=== PATIENT | female | born 1975 | race American Indian/Alaskan Native ===

== ENCOUNTER 2018-07-20 19:24 | Emergency (ER) | payer OTHER ==
[2018-07-20 21:09] LABS: Hematocrit 33.3 % (30.3-42.9); Hemoglobin 10.9 gm/dl (10.1-14.3); Mean Corpuscular HGB Conc 33 % (30-34); Mean Corpuscular Hemoglobin 27 pg (28-32); Mean Corpuscular Volume 84 fl (79-97); Platelet Count 268 K/mm3 (140-440); Red Blood Count 3.97 M/mm3 (3.65-5.03)
--- NOTE | 2018-07-20 23:39 | Emergency Department Report ---
<ISABELLE VERAS III - Last Filed: 07/21/18 07:47> ED Female HPI - General Chief complaint: Vaginal Bleeding Stated complaint: HEAVY BLEEDING/CRAMPS Time Seen by Provider: 07/20/18 23:39 - Related Data Previous Rx's Medication Instructions Recorded Last Taken Type Ferrous Sulfate [Feosol 325 MG tab] 325 mg PO QDAY 30 Days #30 tablet 07/21/18 Unknown Rx HYDROcodone/APAP 5-325 [[place] 1 each PO Q6H PRN #10 tablet 07/21/18 Unknown Rx 5/325] medroxyPROGESTERone ACETATE 5 mg PO QDAY #4 tablet 07/21/18 Unknown Rx [Provera] Allergies Allergy/AdvReac Type Severity Reaction Status Date / Time Sulfa (Sulfonamide AdvReac Vomiting Verified 07/20/18 19:53 Antibiotics) ED Review of Systems ROS: Stated complaint: HEAVY BLEEDING/CRAMPS Other details as noted in HPI ED Past Medical Hx - Medications Home Medications: Home Medications Medication Instructions Recorded Confirmed Last Taken Type Ferrous Sulfate [Feosol 325 MG tab] 325 mg PO QDAY 30 Days #30 tablet 07/21/18 Unknown Rx HYDROcodone/APAP 5-325 [[place] 1 each PO Q6H PRN #10 tablet 07/21/18 Unknown Rx 5/325] medroxyPROGESTERone ACETATE 5 mg PO QDAY #4 tablet 07/21/18 Unknown Rx [Provera] ED Course Vital Signs 07/20/18 07/20/18 07/21/18 19:37 19:47 00:59 Temperature 99.0 F 99.0 F Pulse Rate 92 H 94 H Respiratory 14 16 Rate Blood Pressure 162/107 162/107 164/108 Blood Pressure [Right] O2 Sat by Pulse 100 100 99 Oximetry 07/21/18 07/21/18 07/21/18 01:03 03:00 04:00 Temperature 98.2 F Pulse Rate 84 Respiratory 18 Rate Blood Pressure 159/85 140/84 Blood Pressure 164/108 [Right] O2 Sat by Pulse 100 100 100 Oximetry 07/21/18 07/21/18 07/21/18 05:00 06:46 07:00 Temperature Pulse Rate Respiratory Rate Blood Pressure 143/91 142/89 137/92 Blood Pressure [Right] O2 Sat by Pulse 98 100 98 Oximetry 07/21/18 09:00 Temperature Pulse Rate 90 Respiratory 16 Rate Blood Pressure Blood Pressure 155/98 [Right] O2 Sat by Pulse 98 Oximetry - Reevaluation(s) Reevaluation #2: Discussed all results with patient. Patient given instructions to follow-up with [facility] as soon as possible for further evaluation and treatment. Discussed case with Dr. Smith, HYDRA[facility] TESTER. Dr. Smith recommends pain medications, provera, ferrous sulfate and follow up apt within 3-5 days. Patient given discharge instructions and return to ER precautions and instructions. Patient states that her pain has improved. Patient denies any other physical complaints at this time. Patient is stable for discharge. 07/21/18 07:51 ED Medical Decision Making - Lab Data Result diagrams: 07/21/18 01:23 07/21/18 01:23 Critical care attestation.: If time is entered above; I have spent that time in minutes in the direct care of this critically ill patient, excluding procedure time. ED Disposition Clinical Impression: Vaginal bleeding, DUB (dysfunctional uterine bleeding), Uterine mass Uterine fibroid Qualifiers: Uterine leiomyoma location: unspecified location Qualified Code(s): D25.9 - Leiomyoma of uterus, unspecified Disposition: DC-01 TO HOME OR SELFCARE Is pt being admited?: No Does the pt Need Aspirin: No Condition: Stable Instructions: Iron Rich Diet (ED), Iron Deficiency Anemia (ED), Menorrhagia (ED ), Anemia (ED) Additional Instructions: . Patient to follow up with primary care in 3-5 days. Patient to follow-up with [facility] in 3-5 days, Dr. Alexis.. Patient to return to ER if condition worsens. Patient to rest. Patient increase water. Patient to take meds as instructed. Patient to take Tylenol and ibuprofen when necessary for pain Prescriptions: Ferrous Sulfate [Feosol 325 MG tab] 325 mg PO QDAY 30 Days #30 tablet HYDROcodone/APAP 5-325 [[place] 5/325] 1 each PO Q6H PRN #10 tablet PRN Reason: Pain , Severe (7-10) medroxyPROGESTERone ACETATE [Provera] 5 mg PO QDAY #4 tablet Referrals: PRIMARY CARE, [Primary Care Provider] - 3-5 Days DESTIN SMITH [Staff Physician] - 3-5 Days Forms: Work/School Release Form(ED) Time of Disposition: 08:07 <LANEY OROPEZA - Last Filed: 07/21/18 20:05> ED Female HPI - General Source: patient Mode of arrival: Ambulatory Limitations: No Limitations - History of Present Illness MD Complaint: vaginal bleeding, pelvic pain -: Sudden Location: perineum Radiation: non-radiating Severity: moderate Severity scale (0 -10): 5 Quality: sharp Consistency: constant Improves with: none Worsens with: none Are you Now?: No Associated Symptoms: vaginal bleeding - Related Data Sexually active: Yes ED Review of Systems Comment: All other systems reviewed and negative Constitutional: denies: chills, fever Eyes: denies: eye pain, eye discharge ENT: denies: ear pain, throat pain Respiratory: denies: cough, orthopnea, shortness of breath Cardiovascular: denies: chest pain, palpitations, dyspnea on exertion Endocrine: no symptoms reported Gastrointestinal: abdominal pain. denies: nausea, vomiting Genitourinary: denies: urgency, dysuria, frequency Musculoskeletal: denies: back pain, joint swelling Skin: denies: rash, lesions Neurological: denies: headache, weakness, numbness Psychiatric: denies: anxiety, depression Hematological/Lymphatic: denies: easy bleeding, easy bruising ED Past Medical Hx - Past Medical History Previous Medical History?: No - Surgical History Past Surgical History?: No - Social History Smoking Status: Current Every Day Smoker Substance Use Type: None ED Physical Exam - General Limitations: No Limitations General appearance: alert, in no apparent distress - Head Head exam: Present: atraumatic, normocephalic, normal inspection - Eye Eye exam: Present: normal appearance, PERRL, EOMI Pupils: Present: normal accommodation - ENT ENT exam: Present: normal exam, normal orophraynx, mucous membranes moist - Neck Neck exam: Present: normal inspection, full ROM. Absent: tenderness - Respiratory Respiratory exam: Present: normal lung sounds bilaterally. Absent: respiratory distress, wheezes, rales, rhonchi, stridor - Cardiovascular Cardiovascular Exam: Present: regular rate, normal rhythm, normal heart sounds - GI/Abdominal GI/Abdominal exam: Present: soft, normal bowel sounds. Absent: distended, tenderness, guarding, rebound, rigid - Rectal Rectal exam: Present: deferred - External exam: Present: normal external exam Speculum exam: Present: vaginal bleeding. Absent: vaginal discharge, tissue, laceration Bi-manual exam: Present: normal bi-manual exam, other (Chartrinione was Ms. Catina RN.). Absent: cervical motion tendernes - Extremities Exam Extremities exam: Present: normal inspection, full ROM, normal capillary refill. Absent: tenderness - Back Exam Back exam: Present: normal inspection, full ROM. Absent: tenderness - Neurological Exam Neurological exam: Present: alert, oriented X3, CN II-XII intact - Psychiatric Psychiatric exam: Present: normal affect, normal mood - Skin Skin exam: Present: warm, dry, intact, normal color. Absent: rash ED Course - Reevaluation(s) Reevaluation #1: 07/21/18 02:46 Patient was signed out to Dr. Rodriguez pending CT scan of the abdomen and pelvis with IV and PO contrast. 07/21/18 02:52 ED Medical Decision Making - Lab Data Result diagrams: 07/21/18 01:23 07/21/18 01:23 - Radiology Data Radiology results: report reviewed, image reviewed - Medical Decision Making Dysfunctional Uterine Bleeding. ED Disposition Is pt being admited?: No Does the pt Need Aspirin: No
[2018-07-20] MEDS ORDERED: NACL 0.9% 1000 ML 1,000 ML IV ONE (23:55)
[2018-07-20] MEDS ORDERED: NORCO 5/325 PO ONE (23:55)
[2018-07-21 01:09] LABS: INR 0.97 (0.87-1.13)
[2018-07-21 01:54] LABS: Bilirubin,Urine NEG (Negative); Blood,Urine LG (Negative); Color,Urine Yellow (Yellow); Mucus,Urine 2+ /HPF
[2018-07-21 01:55] LABS: RBC,Urine > 182.0 /HPF (0.0-6.0)
[2018-07-21 02:00] LABS: Basophils % (Auto) 0.9 % (0.0-1.8); Eosinophils # (Auto) 0.3 K/mm3 (0.0-0.4); Eosinophils % (Auto) 5.3 % (0.0-4.3); Hemoglobin 10.6 gm/dl (10.1-14.3); Lymphocytes # (Auto) 2.4 K/mm3 (1.2-5.4); Lymphocytes % (Auto) 40.5 % (13.4-35.0); Mean Corpuscular HGB Conc 33 % (30-34); Mean Corpuscular Hemoglobin 28 pg (28-32); Mean Corpuscular Volume 84 fl (79-97); Monocytes # (Auto) 0.6 K/mm3 (0.0-0.8); Monocytes % (Auto) 10.7 % (0.0-7.3); Platelet Count 254 K/mm3 (140-440); Red Blood Count 3.82 M/mm3 (3.65-5.03); Red Cell Distribution Width 15.9 % (13.2-15.2)
--- NOTE | 2018-07-21 02:49 | Ultrasound Report ---
FINAL REPORT EXAM: US TRANSVAGINAL HISTORY: Pelvic pain TECHNIQUE: Transvaginal imaging was obtained of the pelvis. FINDINGS: There is a large complex solid mass in the expected position of the uterus measuring 9 cm x 7.9 cm x 8.7 cm. As to whether this is related to the uterus or adnexal is uncertain. A normal-appearing uterus and ovaries are not identified. Free fluid is not seen. IMPRESSION: Large complex solid mass centrally in the expected position of the uterus. A normal-appearing uterus and adnexa are not identified. CT scanning of the abdomen and pelvis without IV and oral contrast recommended for further evaluation.
--- NOTE | 2018-07-21 02:50 | Ultrasound Report ---
FINAL REPORT EXAM: US PELVIC COMPLETE HISTORY: Vaginal bleeding TECHNIQUE: Transabdominal imaging was obtained of the pelvis. FINDINGS: There is a complex solid mass in the expected position of the uterus measuring 9 cm x 7.9 cm x 8.7 cm. A normal-appearing uterus and adnexa are not identified. Free fluid is not seen. IMPRESSION: Complex solid mass in the expected position of the uterus measuring 9 cm x 7.9 cm x 8.7 cm. A normal-appearing uterus and adnexa are not identified. Computed tomography of the abdomen and pelvis with IV and oral contrast recommended for further evaluation.
[2018-07-21 02:53] LABS: Alanine Aminotransferase 13 units/L (7-56); Albumin 3.9 g/dL (3.9-5); BUN/Creatinine Ratio 18; Blood Urea Nitrogen 11 mg/dL (7-17); Calcium 9.1 mg/dL (8.4-10.2); Hemolysis Index 3
[2018-07-21] MEDS ORDERED: PROVERA PO ONE (03:00)
[2018-07-21] MEDS ORDERED: NORCO 5/325 PO ONE (05:34)
--- NOTE | 2018-07-21 06:39 | Cat Scan Report ---
FINAL REPORT EXAM: CT ABDOMEN PELVIS W CON HISTORY: abdominal pain, pelvic mass TECHNIQUE: Routine axial imaging was obtained of the abdomen and pelvis following the intravenous injection of 100 cc of Omnipaque 350. Delayed imaging was obtained through the kidneys ureters and bladder. Sagittal and coronal reconstructions were reviewed. FINDINGS: The lung bases are clear. Pleural fluid is not seen. The liver, gallbladder, biliary tree, pancreas, spleen, and adrenal glands appear normal. The kidneys reveal mild bilateral hydronephrosis changes secondary to extrinsic compression by a large pelvic mass. The left kidney reveals a 2.3 cm benign cortical cyst. Centrally in the pelvis an uterine in origin is a large mass with a lobular contours along the right lateral wall measuring 21.5 cm x 16.5 cm by 25.1 cm. There is peripheral displacement of bowel loops secondary to this uterine mass. Free fluid is not seen. There is no evidence of adenopathy. There superior extrinsic compression of the bladder. The vasculatures otherwise enhance normally. The appendix is not enlarged. The bowel loops are not distended. The skeletal structures otherwise do not show any acute changes. IMPRESSION: Large lobulated uterine mass measuring 21.5 cm x 16.5 cm x 25 x 1 cm. Diagnostic consideration include a diffusely enlarged uterus related to multiple fibroids and/or adenomyosis. A leiomyosarcoma cannot entirely be excluded. Mild bilateral hydronephrosis secondary to extrinsic compression of the uterus by the uterine mass. 2.3 cm benign cortical cyst in the left kidney.
[2018-07-21 09:10] VITALS: BP 155/98
== END 2018-07-21 09:10 | disposition home or self-care (01) ==
LOC: ED 19:24
DX: N93.8 Other specified abnormal uterine and vaginal bleeding (principal); D25.9 Leiomyoma of uterus, unspecified; F17.200 Nicotine dependence, unspecified, uncomplicated; Z88.2 Allergy status to sulfonamides
CPT/HCPCS: 36415; 51701; 74177; 76830; 76856; 80053; 81001; 84703; 85025; 85027; 85610; 85730; 87210; 87591; 99284; J7030; Q9967; 96360

== ENCOUNTER 2021-02-18 08:35 | Emergency (ER) | payer SELFPAY ==
[2021-02-18] MEDS ORDERED: ASPIRIN 325 MG TAB PO ONE (08:46)
--- NOTE | 2021-02-18 09:10 | XRay Report ---
CHEST 2 VIEWS INDICATION / CLINICAL INFORMATION: chest pain. COMPARISON: None available. FINDINGS: SUPPORT DEVICES: None. HEART / MEDIASTINUM: No significant abnormality. LUNGS / PLEURA: No significant pulmonary or pleural abnormality. No pneumothorax. ADDITIONAL FINDINGS: No significant additional findings. IMPRESSION: 1. No acute findings. Signer Name: Sarthak Maza MD Signed: 02/18/2021 9:05 AM Workstation Name: [id number]
[2021-02-18 10:11] LABS: Basophils # (Auto) 0.1 K/mm3 (0.0-0.1); Eosinophils # (Auto) 0.3 K/mm3 (0.0-0.4); Eosinophils % (Auto) 4.7 % (0.0-4.3); Hematocrit 36.2 % (30.3-42.9); Hemoglobin 12.4 gm/dl (10.1-14.3); Lymphocytes # (Auto) 1.6 K/mm3 (1.2-5.4); Lymphocytes % (Auto) 28.1 % (13.4-35.0); Mean Corpuscular HGB Conc 34 % (30-34); Mean Corpuscular Volume 80 fl (79-97); Monocytes # (Auto) 0.5 K/mm3 (0.0-0.8); Monocytes % (Auto) 8.7 % (0.0-7.3); Platelet Count 319 K/mm3 (140-440); Red Blood Count 4.51 M/mm3 (3.65-5.03)
[2021-02-18 10:33] LABS: Alanine Aminotransferase 17 units/L (7-56); Albumin 4.2 g/dL (3.9-5); Blood Urea Nitrogen 13 mg/dL (7-17); Calcium 9.6 mg/dL (8.4-10.2); Hemolysis Index 2
[2021-02-18 10:34] LABS: BUN/Creatinine Ratio 19
[2021-02-18] MEDS ORDERED: SODIUM CHLORIDE 0.9% 1000 ML 1,000 ML IV ONE (10:50)
--- NOTE | 2021-02-18 12:38 | Emergency Department Report ---
ED General Adult HPI - General Chief complaint: Arrhythmia/Palpitations Stated complaint: CP PUI?: No Time Seen by Provider: 02/18/21 11:48 Source: patient Mode of arrival: Ambulatory Limitations: No Limitations - History of Present Illness Initial comments: Patient is a pleasant 45-year-old -[place] female that comes to the ER today after having what she describes as her heart beating out of her chest. On further probing she states that she has had this off and on for several weeks. She endorses polyuria polydipsia and polyphagia. Patient also endorses recent weight loss. Patient denies chest pain or shortness of breath. She denies fever. She denies abdominal pain. Denies nausea vomiting diarrhea. Denies dysuria or vaginal discharge. Last menstrual period 3 weeks ago. -: Gradual, days(s) Associated Symptoms: denies other symptoms Treatments Prior to Arrival: none - Related Data Previous Rx's Medication Instructions Recorded Last Taken Type Blood-Glucose Meter [Accu-Chek 1 each MC ONCE #1 each 02/18/21 Unknown Rx Guide Monitor System] metFORMIN [Glucophage] 500 mg PO BID #28 tablet 02/18/21 Unknown Rx Allergies Allergy/AdvReac Type Severity Reaction Status Date / Time Sulfa (Sulfonamide AdvReac Vomiting Verified 07/20/18 19:53 Antibiotics) ED Review of Systems ROS: Stated complaint: CP Other details as noted in HPI Comment: All other systems reviewed and negative ED Past Medical Hx - Past Medical History Previous Medical History?: Yes Hx Hypertension: Yes (NEW DX 01/11) - Surgical History Past Surgical History?: Yes Additional Surgical History: UTERINE FIBROID SURGERY IN 2019 - Family History Family history: other (DAD DM/CVA/HTN; MOM HTN) - Social History Smoking Status: Current Every Day Smoker Substance Use Type: None - Medications Home Medications: Home Medications Medication Instructions Recorded Confirmed Last Taken Type Blood-Glucose Meter [Accu-Chek 1 each MC ONCE #1 each 02/18/21 Unknown Rx Guide Monitor System] metFORMIN [Glucophage] 500 mg PO BID #28 tablet 02/18/21 Unknown Rx ED Physical Exam - General Limitations: No Limitations General appearance: alert, in no apparent distress - Head Head exam: Present: atraumatic, normocephalic - Eye Eye exam: Present: normal appearance - ENT ENT exam: Present: mucous membranes moist - Neck Neck exam: Present: normal inspection - Respiratory Respiratory exam: Present: normal lung sounds bilaterally. Absent: respiratory distress - Cardiovascular Cardiovascular Exam: Present: regular rate, normal rhythm. Absent: systolic murmur, diastolic murmur, rubs, gallop - GI/Abdominal GI/Abdominal exam: Present: soft, normal bowel sounds - Extremities Exam Extremities exam: Present: normal inspection - Back Exam Back exam: Present: normal inspection - Neurological Exam Neurological exam: Present: alert, oriented X3 - Psychiatric Psychiatric exam: Present: normal affect, normal mood - Skin Skin exam: Present: warm, dry, intact, normal color. Absent: rash ED Course Vital Signs 02/18/21 08:44 Temperature 98 F Pulse Rate 103 H Respiratory 18 Rate Blood Pressure 169/107 [Right] O2 Sat by Pulse 100 Oximetry ED Medical Decision Making - Lab Data Result diagrams: 02/18/21 09:38 02/18/21 09:38 - EKG Data Rate: normal - EKG Data When compared to previous EKG there are: no significant change Interpretation: no acute changes - Radiology Data Radiology results: report reviewed, image reviewed [facility] - Medical Decision Making Lab Results 02/18/21 02/18/21 02/18/21 Range/Units 09:38 09:38 09:38 WBC 5.5 (4.5-11.0) K/mm3 RBC 4.51 (3.65-5.03) M/mm3 Hgb 12.4 (10.1-14.3) gm/dl Hct 36.2 (30.3-42.9) % MCV 80 (79-97) fl MCH 27 L (28-32) pg MCHC 34 (30-34) % RDW 16.0 H (13.2-15.2) % Plt Count 319 (140-440) K/mm3 Lymph % (Auto) 28.1 (13.4-35.0) % [place] % (Auto) 8.7 H (0.0-7.3) % Eos % (Auto) 4.7 H (0.0-4.3) % Baso % (Auto) 1.0 (0.0-1.8) % Lymph # (Auto) 1.6 (1.2-5.4) K/mm3 [place] # (Auto) 0.5 (0.0-0.8) K/mm3 Eos # (Auto) 0.3 (0.0-0.4) K/mm3 Baso # (Auto) 0.1 (0.0-0.1) K/mm3 Seg Neutrophils % 57.5 (40.0-70.0) % Seg Neutrophils # 3.2 (1.8-7.7) K/mm3 VBG pH (7.320-7.420) Sodium 130 L (137-145) mmol/L Potassium 3.6 (3.6-5.0) mmol/L Chloride 95.1 L (98-107) mmol/L Carbon Dioxide 24 (22-30) mmol/L Anion Gap 15 mmol/L BUN 13 (7-17) mg/dL Creatinine 0.7 (0.6-1.2) mg/dL Estimated GFR > 60 ml/min BUN/Creatinine Ratio 19 % Glucose 220 H (65-100) mg/dL POC Glucose (70-105) mg/dL Ketones Quantitative (Negative) Calcium 9.6 (8.4-10.2) mg/dL Total Bilirubin < 0.20 (0.1-1.2) mg/dL AST 15 (5-40) units/L ALT 17 (7-56) units/L Alkaline Phosphatase 96 (35-129) units/L Troponin T (0.00-0.029) ng/mL Total Protein 7.6 (6.3-8.2) g/dL Albumin 4.2 (3.9-5) g/dL Albumin/Globulin Ratio 1.2 % TSH 0.613 (0.270-4.200) mlU/mL Urine Color (Yellow) Urine Turbidity (Clear) Urine pH (5.0-7.0) Ur Specific [place] (1.003-1.030) Urine Protein (Negative) mg/dL Urine Glucose (UA) (Negative) mg/dL Urine Ketones (Negative) mg/dL Urine Blood (Negative) Urine Nitrite (Negative) Ur Reducing Substances Urine Bilirubin (Negative) Urine Ictotest Urine Urobilinogen (<2.0) mg/dL Ur Leukocyte Esterase (Negative) Urine WBC (Auto) (0.0-6.0) /HPF Urine RBC (Auto) (0.0-6.0) /HPF U Epithel Cells (Auto) (0-13.0) /HPF Urine Mucus /HPF Urine HCG, Qual (Negative) 03/31/21 03/31/21 03/31/21 Range/Units 11:50 11:56 13:11 WBC (4.5-11.0) K/mm3 RBC (3.65-5.03) M/mm3 Hgb (10.1-14.3) gm/dl Hct (30.3-42.9) % MCV (79-97) fl MCH (28-32) pg MCHC (30-34) % RDW (13.2-15.2) % Plt Count (140-440) K/mm3 Lymph % (Auto) (13.4-35.0) % [place] % (Auto) (0.0-7.3) % Eos % (Auto) (0.0-4.3) % Baso % (Auto) (0.0-1.8) % Lymph # (Auto) (1.2-5.4) K/mm3 [place] # (Auto) (0.0-0.8) K/mm3 Eos # (Auto) (0.0-0.4) K/mm3 Baso # (Auto) (0.0-0.1) K/mm3 Seg Neutrophils % (40.0-70.0) % Seg Neutrophils # (1.8-7.7) K/mm3 VBG pH (7.320-7.420) Sodium (137-145) mmol/L Potassium (3.6-5.0) mmol/L Chloride (98-107) mmol/L Carbon Dioxide (22-30) mmol/L Anion Gap mmol/L BUN (7-17) mg/dL Creatinine (0.6-1.2) mg/dL Estimated GFR ml/min BUN/Creatinine Ratio % Glucose (65-100) mg/dL POC Glucose 279 H (70-105) mg/dL Ketones Quantitative Negative (Negative) Calcium (8.4-10.2) mg/dL Total Bilirubin (0.1-1.2) mg/dL AST (5-40) units/L ALT (7-56) units/L Alkaline Phosphatase (35-129) units/L Troponin T < 0.010 (0.00-0.029) ng/mL Total Protein (6.3-8.2) g/dL Albumin (3.9-5) g/dL Albumin/Globulin Ratio % TSH (0.270-4.200) mlU/mL Urine Color (Yellow) Urine Turbidity (Clear) Urine pH (5.0-7.0) Ur Specific [place] (1.003-1.030) Urine Protein (Negative) mg/dL Urine Glucose (UA) (Negative) mg/dL Urine Ketones (Negative) mg/dL Urine Blood (Negative) Urine Nitrite (Negative) Ur Reducing Substances Urine Bilirubin (Negative) Urine Ictotest Urine Urobilinogen (<2.0) mg/dL Ur Leukocyte Esterase (Negative) Urine WBC (Auto) (0.0-6.0) /HPF Urine RBC (Auto) (0.0-6.0) /HPF U Epithel Cells (Auto) (0-13.0) /HPF Urine Mucus /HPF Urine HCG, Qual (Negative) 02/18/21 02/18/21 Range/Units 13:11 Unknown WBC (4.5-11.0) K/mm3 RBC (3.65-5.03) M/mm3 Hgb (10.1-14.3) gm/dl Hct (30.3-42.9) % MCV (79-97) fl MCH (28-32) pg MCHC (30-34) % RDW (13.2-15.2) % Plt Count (140-440) K/mm3 Lymph % (Auto) (13.4-35.0) % [place] % (Auto) (0.0-7.3) % Eos % (Auto) (0.0-4.3) % Baso % (Auto) (0.0-1.8) % Lymph # (Auto) (1.2-5.4) K/mm3 [place] # (Auto) (0.0-0.8) K/mm3 Eos # (Auto) (0.0-0.4) K/mm3 Baso # (Auto) (0.0-0.1) K/mm3 Seg Neutrophils % (40.0-70.0) % Seg Neutrophils # (1.8-7.7) K/mm3 VBG pH 7.364 (7.320-7.420) Sodium (137-145) mmol/L Potassium (3.6-5.0) mmol/L Chloride (98-107) mmol/L Carbon Dioxide (22-30) mmol/L Anion Gap mmol/L BUN (7-17) mg/dL Creatinine (0.6-1.2) mg/dL Estimated GFR ml/min BUN/Creatinine Ratio % Glucose (65-100) mg/dL POC Glucose (70-105) mg/dL Ketones Quantitative (Negative) Calcium (8.4-10.2) mg/dL Total Bilirubin (0.1-1.2) mg/dL AST (5-40) units/L ALT (7-56) units/L Alkaline Phosphatase (35-129) units/L Troponin T (0.00-0.029) ng/mL Total Protein (6.3-8.2) g/dL Albumin (3.9-5) g/dL Albumin/Globulin Ratio % TSH (0.270-4.200) mlU/mL Urine Color Yellow (Yellow) Urine Turbidity Clear (Clear) Urine pH 5.0 (5.0-7.0) Ur Specific [place] 1.015 (1.003-1.030) Urine Protein <15 mg/dl (Negative) mg/dL Urine Glucose (UA) >=500 (Negative) mg/dL Urine Ketones Neg (Negative) mg/dL Urine Blood Neg (Negative) Urine Nitrite Neg (Negative) Ur Reducing Substances Not Reportable Urine Bilirubin Neg (Negative) Urine Ictotest Not Reportable Urine Urobilinogen < 2.0 (<2.0) mg/dL Ur Leukocyte Esterase Neg (Negative) Urine WBC (Auto) 1.0 (0.0-6.0) /HPF Urine RBC (Auto) < 1.0 (0.0-6.0) /HPF U Epithel Cells (Auto) 2.0 (0-13.0) /HPF Urine Mucus Few /HPF Urine HCG, Qual Negative (Negative) Vital Signs 02/18/21 08:44 Temperature 98 F Pulse Rate 103 H Respiratory 18 Rate Blood Pressure 169/107 [Right] O2 Sat by Pulse 100 Oximetry Blood glucose noted to be elevated in triage. Patient denied being a diabetic. Blood sugar repeated and it is persistently high. Patient does have a family history of diabetes. Patient endorses recent polyuria polydipsia and polyphagia. She also endorses a 30 pound weight loss in the last few months. Patient was seen at an urgent care last week for elevated blood pressure but they did not do blood work. Patient denies any chest pain or shortness of breath. She is not actively having nausea vomiting or diarrhea. She is ambulatory nontoxic and [id number] on arrival to the ER. Labs were noted. 12-lead noted. No evidence of infection on x-ray. UA noted. Patient has a normal venous pH with no ketones in her blood. Patient was hydrated with 2 L normal saline. She was given IV insulin and her blood sugar trended down. STAFFED WITH DR BAEZ On reexam patient is ambulatory and taking p.o. Blood sugar trending down. No tachycardia. Heart rate 88 on exam by provider. Patient denying any chest pain or shortness of breath. She has been on the monitor in [facility] and has had no a rrhythmias. Patient being discharged home with primary care follow-up. I have given her 2- week supply of Metformin. I have also given her prescription for a glucometer with strips. I have asked the patient to check her blood sugar before meals and at bedtime sensor recorded so that she has this information available for her her primary care visit. I have explained to her that our primary care will see her given that she is a patient here in the emergency room given her lapse in insurance. Patient being discharged home with stable vital signs. She verbalizes understanding of discharge plan of care. I have given the patient significant amounts of diabetic education materials. The nurses have educated her. Her her dad is a diabetic. She is also in school for paramedical aide training. Patient verbalizes understanding of discharge plan of care. - Differential Diagnosis NEW ONSET DM Critical care attestation.: If time is entered above; I have spent that time in minutes in the direct care of this critically ill patient, excluding procedure time. ED Disposition Clinical Impression: Diabetes mellitus, new onset Disposition: DC-01 TO HOME OR SELFCARE Is pt being admited?: No Does the pt Need Aspirin: No Condition: Stable Instructions: Type 2 Diabetes Mellitus, Diagnosis, Adult, Tips for Eating Away From Home If You Have Diabetes, Living With Diabetes, Type 2 Diabetes Mellitus, Self Care, Adult, Carbohydrate Counting for Diabetes Mellitus, Adult, Type 2 Diabetes Mellitus, Diagnosis, Adult, [id number], Diabetes Mellitus and Exercise, Diabetes Mellitus Type 2 in Adults (ED) Additional Instructions: PLEASE READ ATTACHED MATERIALS TO HELP YOU CONTROL BLOOD GLUCOSE FOLLOW UP WITH PCP REFERRAL BELOW LET HIM KNOW WE REFERRED YOU DIABETIC DIET- SEE ATTACHED STAY WELL HYDRATED MEDICATION ORDERED TODAY DIET MAY HELP TO AVOID NEED FOR INSULIN CHECK AND RECORD YOUR BLOOD GLUCOSE BEFORE EACH MEAL AND AT NIGHT-- AND RECORD. TAKE THIS RECORD TO THE DOCTOR WITH YOU CONTINUE YOUR BLOOD PRESSURE MEDICATIONS GIVEN TO YOU LAST WEEK Prescriptions: Blood-Glucose Meter [Accu-Chek Guide Monitor System] 1 each MC ONCE #1 each metFORMIN [Glucophage] 500 mg PO BID #28 tablet Referrals: KASSIDY NICOLAS MD [Staff Physician] - 3-5 Days Time of Disposition: 14:31
[2021-02-18] MEDS ORDERED: INSULIN REGULAR, HUMAN 100 UNITS/1 ML IV ONE (12:42)
[2021-02-18 13:38] LABS: Bilirubin,Urine NEG (Negative); Blood,Urine NEG (Negative); Color,Urine Yellow (Yellow); HCG Qualitative,Urine Negative (Negative); Mucus,Urine FEW /HPF; Protein,Urine <15 mg/dL mg/dL (Negative); RBC,Urine < 1.0 /HPF (0.0-6.0); Urobilinogen,Urine < 2.0 mg/dL (<2.0)
[2021-02-18 17:26] VITALS: BP 152/92
--- NOTE | 2021-02-20 10:40 | Electrocardiograph Report ---
[facility] Test Date: 2021-02-18 Test Time: 12:28:13 Pat Name: MAXX JIMENEZ Department: Room: Gender: F Emergency Management System Director: LULY : 1975 Requested By: ED DOC Order Number: [id number] Reading MD: Liam Hsu Measurements Intervals [place] Rate: 81 P: 63 AK: 199 QRS: -19 QRSD: 84 T: 161 QT: 381 QTc: 443 Interpretive Statements Sinus rhythm Probable left atrial enlargement Nonspecific T abnormalities, lateral leads No previous ECG available for comparison Electronically Signed On 02-20-2021 10:39:56 EDT by Liam Hsu
== END 2021-02-18 17:22 | disposition home or self-care (01) ==
LOC: ED 08:35
DX: E11.9 Type 2 diabetes mellitus without complications (principal); I10 Essential (primary) hypertension; F17.200 Nicotine dependence, unspecified, uncomplicated; Z79.899 Other long term (current) drug therapy; Z88.2 Allergy status to sulfonamides; Z98.890 Other specified postprocedural states
CPT/HCPCS: 36415; 71046; 80053; 81001; 81025; 82010; 82805; 82962; 84443; 84484; 85025; 93005; 96361; 96374; 99284; J7030; J1815

== ENCOUNTER 2021-08-22 08:36 | Inpatient (IN) | payer SELFPAY ==
[2021-08-22] MEDS ORDERED: SODIUM CHLORIDE 0.9% 1000 ML 1,000 ML IV ONE (09:01)
--- NOTE | 2021-08-22 09:41 | Emergency Department Report ---
ED Neuro Deficit HPI - General Chief Complaint: Headache Stated Complaint: RT SIDE NUMBNESS AND TINGLING Time Seen by Provider: 08/22/21 08:59 Source: patient Mode of arrival: Ambulatory Limitations: No Limitations - History of Present Illness Initial Comments: The patient was evaluated in the emergency department for symptoms described in the history of present illness. He/she was evaluated in the context of the global COVID-19 pandemic, which necessitated consideration that the patient might be at risk for infection with the virus that causes COVID-19. Institutional protocols and algorithms that pertain to the evaluation of patients at risk for COVID-19 are in a state of rapid change based on information released by regulatory bodies including the CDC and federal and state organizations. These policies and algorithms were followed during the patient's care in the emergency department. Please note that these policies, procedures and recommendations changed on a rapid basis. 45-year-old -Citizen Of [place] female presents to the emergency room complaining of right side numbness and tingling that she noticed last night. Patient states that when she was in the grocery store she started feeling uncomfortable started having some numbness to her right forearm. She left the grocery store ate something and then proceeded home. Patient states she still continued to have numbness and tingling. She states this morning she woke up with increased numbness and tingling with a slight headache. She has a current history of hypertension and diabetes. Patient does admit that she is not compliant on her diabetic medication and has not been on it for a month. Patient states that she was recent diagnosed with diabetes in February. She states she does not check her blood sugar. She comes in today with her blood sugar 331. She has a history of hypertension is currently on amlodipine 5 mg daily and losartan 100 mg daily. She is followed by Dr. Merino at [facility]. -: This morning Location: right face, right arm History of same: No Place: home Severity: moderate Quality: numb, tingling Improves With: none Worsens With: none On Anticoagulants: No Associated Symptoms: denies: confusion, cough, diaphoresis, fever/chills, loss of appetite, malise, nausea/vomiting, shortness of breath - Related Data Home Medications: Previous Rx's Medication Instructions Recorded Last Taken Type Aspirin [Aspirin BABY CHEW TAB] 81 mg PO QDAY 30 Days #30 tab.chew 08/23/21 Unknown Rx AtorvaSTATin [Lipitor] 20 mg PO QHS 30 Days #30 tablet 08/23/21 Unknown Rx Blood-Glucose Meter [Accu-Chek 1 each MC ONCE #1 each 08/23/21 Unknown Rx Guide Monitor System] Gabapentin 300 mg PO TID 30 Days #90 capsule 08/23/21 Unknown Rx Losartan [Cozaar] 100 mg PO DAILY tablet 08/23/21 Unknown Rx amLODIPine 10 mg PO DAILY tablet 08/23/21 Unknown Rx glipiZIDE XL [Glucotrol Xl] 2.5 mg PO QAM 30 Days #30 tab.er.24 08/23/21 Unknown Rx Allergies/Adverse Reactions: Allergies Allergy/AdvReac Type Severity Reaction Status Date / Time Sulfa (Sulfonamide AdvReac Vomiting Verified 07/20/18 19:53 Antibiotics) ED Review of Systems ROS: Stated complaint: RT SIDE NUMBNESS AND TINGLING Other details as noted in HPI Comment: All other systems reviewed and negative ED Past Medical Hx - Past Medical History Hx Hypertension: Yes (NEW DX 01/11) Hx Diabetes: Yes - Surgical History Additional Surgical History: UTERINE FIBROID SURGERY IN 2019 - Social History Smoking Status: Current Some Day Smoker Substance Use Type: None - Medications Home Medications: Home Medications Medication Instructions Recorded Confirmed Last Taken Type Aspirin [Aspirin BABY CHEW TAB] 81 mg PO QDAY 30 Days #30 tab.chew 08/23/21 Unknown Rx AtorvaSTATin [Lipitor] 20 mg PO QHS 30 Days #30 tablet 08/23/21 Unknown Rx Blood-Glucose Meter [Accu-Chek 1 each MC ONCE #1 each 08/23/21 Unknown Rx Guide Monitor System] Gabapentin 300 mg PO TID 30 Days #90 capsule 08/23/21 Unknown Rx Losartan [Cozaar] 100 mg PO DAILY tablet 08/23/21 Unknown Rx amLODIPine 10 mg PO DAILY tablet 08/23/21 Unknown Rx glipiZIDE XL [Glucotrol Xl] 2.5 mg PO QAM 30 Days #30 tab.er.24 08/23/21 Unk nown Rx ED Neuro Physical Exam - General Limitations: No Limitations General appearance: alert, in no apparent distress Suspected Stroke: Yes - Head Head exam: Present: atraumatic, normocephalic - Eye Eye exam: Present: normal appearance - ENT ENT exam: Present: mucous membranes moist - Neck Neck exam: Present: normal inspection, full ROM - Respiratory Respiratory exam: Present: normal lung sounds bilaterally. Absent: respiratory distress, accessory muscle use - Cardiovascular Cardiovascular Exam: Present: regular rate, normal rhythm. Absent: systolic murmur, diastolic murmur, rubs, gallop - GI/Abdominal GI/Abdominal exam: Present: soft, normal bowel sounds - Extremities Exam Extremities exam: Present: normal inspection, full ROM. Absent: tenderness - Back Exam Back exam: Present: normal inspection, full ROM - Neurological Exam Neurological exam: Present: alert, oriented X3 - NIHSS Assessment Interval: Baseline 1a. Level of Consciousness: alert/keenly responsive 1b. LOC Questions: answers both correctly 1c. LOC Commands: performs tasks correctly 2. Best Gaze: normal 3. Visual: no visual loss 4. Facial Palsy: normal symmetrical movement 5b. Motor Arm Right: no drift 5a. Motor Arm Left: no drift 6a. Motor Leg Left: no drift 6b. Motor Leg Right: no drift 7. Limb Ataxia: absent 8. Sensory: mild/moderate sensory loss 9. Best Language: no aphasia 10. Dysarthria: normal 11. Extinction/Inattention: no abnormality Total Score: 1 Stroke Severity: Minor Stroke - Psychiatric Psychiatric exam: Present: normal affect, normal mood - Skin Skin exam: Present: warm, dry, intact, normal color. Absent: rash ED Course Vital Signs 08/22/21 08/22/21 08/22/21 08:44 08:58 15:35 Temperature 98.7 F Pulse Rate 80 78 Respiratory 18 18 Rate Blood Pressure 152/92 145/88 O2 Sat by Pulse 100 100 Oximetry 08/22/21 08/22/21 08/22/21 15:37 19:00 21:01 Temperature Pulse Rate 78 78 83 Respiratory 14 14 Rate Blood Pressure 145/88 102/63 133/83 O2 Sat by Pulse 97 97 Oximetry 08/22/21 08/22/21 08/22/21 22:01 22:52 23:00 Temperature Pulse Rate 98 H 80 90 Respiratory 19 12 11 L Rate Blood Pressure 156/96 128/76 128/76 O2 Sat by Pulse 94 97 Oximetry 08/22/21 08/22/21 08/22/21 23:03 23:07 23:31 Temperature Pulse Rate 76 Respiratory 20 18 Rate Blood Pressure 128/76 128/76 O2 Sat by Pulse 97 97 Oximetry 08/23/21 08/23/21 08/23/21 00:01 00:30 01:01 Temperature Pulse Rate 83 77 Respiratory 13 14 Rate Blood Pressure 139/88 139/88 120/76 O2 Sat by Pulse 96 96 96 Oximetry 08/23/21 08/23/21 08/23/21 01:31 04:01 05:01 Temperature Pulse Rate Respiratory Rate Blood Pressure 110/72 136/86 142/90 O2 Sat by Pulse 99 98 98 Oximetry 08/23/21 08/23/21 08/23/21 06:01 07:01 07:43 Temperature Pulse Rate Respiratory Rate Blood Pressure 115/64 131/73 O2 Sat by Pulse 97 99 99 Oximetry 08/23/21 08/23/21 08/23/21 08:01 08:45 09:01 Temperature Pulse Rate Respiratory Rate Blood Pressure 144/86 144/86 138/79 O2 Sat by Pulse 98 97 98 Oximetry 08/23/21 08/23/21 08/23/21 09:15 09:31 09:45 Temperature Pulse Rate Respiratory Rate Blood Pressure 138/79 139/77 139/77 O2 Sat by Pulse 98 98 96 Oximetry 08/23/21 08/23/21 08/23/21 10:01 10:15 10:31 Temperature Pulse Rate Respiratory Rate Blood Pressure 142/81 142/81 146/92 O2 Sat by Pulse 100 99 98 Oximetry 08/23/21 08/23/21 08/23/21 10:45 11:01 11:15 Temperature Pulse Rate Respiratory Rate Blood Pressure 146/92 129/54 129/54 O2 Sat by Pulse 96 98 99 Oximetry 08/23/21 08/23/21 08/23/21 11:31 11:45 12:01 Temperature Pulse Rate Respiratory Rate Blood Pressure 121/79 121/79 146/90 O2 Sat by Pulse 99 99 98 Oximetry 08/23/21 08/23/21 12:15 12:31 Temperature Pulse Rate Respiratory Rate Blood Pressure 146/90 123/83 O2 Sat by Pulse 94 95 Oximetry - Lab Data Result diagrams: 08/22/21 09:41 08/23/21 03:15 Lab Results 08/22/21 08/22/21 08/22/21 Range/Units 08:44 09:41 09:41 WBC 5.0 (4.5-11.0) K/mm3 RBC 3.91 (3.65-5.03) M/mm3 Hgb 10.7 (10.1-14.3) gm/dl Hct 30.8 (30.3-42.9) % MCV 79 (79-97) fl MCH 27 L (28-32) pg MCHC 35 H (30-34) % RDW 17.5 H (13.2-15.2) % Plt Count 305 (140-440) K/mm3 Lymph % (Auto) 34.6 (13.4-35.0) % Meagher % (Auto) 11.5 H (0.0-7.3) % Eos % (Auto) 6.9 H (0.0-4.3) % Baso % (Auto) 1.2 (0.0-1.8) % Lymph # (Auto) 1.7 (1.2-5.4) K/mm3 Meagher # (Auto) 0.6 (0.0-0.8) K/mm3 Eos # (Auto) 0.3 (0.0-0.4) K/mm3 Baso # (Auto) 0.1 (0.0-0.1) K/mm3 Seg Neutrophils % 45.8 (40.0-70.0) % Seg Neutrophils # 2.3 (1.8-7.7) K/mm3 PT 13.7 (12.2-14.9) Sec. INR 1.00 (0.87-1.13) APTT 27.5 (24.2-36.6) Sec. Thrombin Time 17.9 (15.1-19.6) Sec. Sodium (137-145) mmol/L Potassium (3.6-5.0) mmol/L Chloride (98-107) mmol/L Carbon Dioxide (22-30) mmol/L Anion Gap mmol/L BUN (7-17) mg/dL Creatinine (0.6-1.2) mg/dL Estimated GFR ml/min BUN/Creatinine Ratio % Glucose (65-100) mg/dL POC Glucose 331 H (70-105) mg/dL Hemoglobin A1c (4-6) % Calcium (8.4-10.2) mg/dL Total Bilirubin (0.1-1.2) mg/dL AST (5-40) units/L ALT (7-56) units/L Alkaline Phosphatase (35-129) units/L Total Creatine Kinase (30-135) units/L CK-MB (CK-2) (0.0-4.0) ng/mL CK-MB (CK-2) Rel Index (0-4) Troponin T (0.00-0.029) ng/mL Total Protein (6.3-8.2) g/dL Albumin (3.9-5) g/dL Albumin/Globulin Ratio % Triglycerides (2-149) mg/dL Cholesterol (50-199) mg/dL LDL Cholesterol Direct (50-130) mg/dL HDL Cholesterol (40-59) mg/dL Cholesterol/HDL Ratio % 08/22/21 08/22/21 08/22/21 Range/Units 09:41 09:41 09:41 WBC (4.5-11.0) K/mm3 RBC (3.65-5.03) M/mm3 Hgb (10.1-14.3) gm/dl Hct (30.3-42.9) % MCV (79-97) fl MCH (28-32) pg MCHC (30-34) % RDW (13.2-15.2) % Plt Count (140-440) K/mm3 Lymph % (Auto) (13.4-35.0) % Meagher % (Auto) (0.0-7.3) % Eos % (Auto) (0.0-4.3) % Baso % (Auto) (0.0-1.8) % Lymph # (Auto) (1.2-5.4) K/mm3 Meagher # (Auto) (0.0-0.8) K/mm3 Eos # (Auto) (0.0-0.4) K/mm3 Baso # (Auto) (0.0-0.1) K/mm3 Seg Neutrophils % (40.0-70.0) % Seg Neutrophils # (1.8-7.7) K/mm3 PT (12.2-14.9) Sec. INR (0.87-1.13) APTT (24.2-36.6) Sec. Thrombin Time (15.1-19.6) Sec. Sodium 135 L (137-145) mmol/L Potassium 4.1 (3.6-5.0) mmol/L Chloride 101.1 (98-107) mmol/L Carbon Dioxide 20 L (22-30) mmol/L Anion Gap 18 mmol/L BUN 20 H (7-17) mg/dL Creatinine 0.9 (0.6-1.2) mg/dL Estimated GFR > 60 ml/min BUN/Creatinine Ratio 22 % Glucose 281 H (65-100) mg/dL POC Glucose (70-105) mg/dL Hemoglobin A1c 8.8 H (4-6) % Calcium 9.1 (8.4-10.2) mg/dL Total Bilirubin < 0.20 (0.1-1.2) mg/dL AST 9 (5-40) units/L ALT 10 (7-56) units/L Alkaline Phosphatase 87 (35-129) units/L Total Creatine Kinase 80 (30-135) units/L CK-MB (CK-2) 1.9 (0.0-4.0) ng/mL CK-MB (CK-2) Rel Index 2.3 (0-4) Troponin T < 0.010 (0.00-0.029) ng/mL Total Protein 7.6 (6.3-8.2) g/dL Albumin 4.0 (3.9-5) g/dL Albumin/Globulin Ratio 1.1 % Triglycerides 351 H (2-149) mg/dL Cholesterol 237 H (50-199) mg/dL LDL Cholesterol Direct 145 H (50-130) mg/dL HDL Cholesterol 49 (40-59) mg/dL Cholesterol/HDL Ratio 4.83 % - Radiology Data Radiology results: report reviewed [facility] [address] [place] [address] Cat Scan Report Signed Patient: MAXX JIMENEZ MR#: [id number] : 1975 Acct:[id number] Age/Sex: 45 / F ADM Date: 08/22/21 Loc: ED Attending Dr: Ordering Physician: KHANH BUSTAMANTE Date of Service: 08/22/21 Procedure(s): CT head/brain wo con Accession Number(s): [id number] cc: KHANH BUSTAMANTE CT HEAD WITHOUT CONTRAST INDICATION / CLINICAL INFORMATION: Stroke symptoms. TECHNIQUE: All CT scans at this location are performed using CT dose reduction for ALARA by means of automated exposure control. COMPARISON: None available. FINDINGS: BRAIN PARENCHYMA: No acute intracranial hemorrhage. No evidence of recent infarct. No mass effect or midline shift. VENTRICULAR SYSTEM/EXTRA-AXIAL SPACES: Ventricles are normal for age. No extra- axial fluid collection. ORBITS: Normal as visualized. SKELETAL SYSTEM/SOFT TISSUES: Normal bones and soft tissues. PARANASAL SINUSES/MASTOID AIR CELLS: No significant abnormality. ADDITIONAL FINDINGS: None. IMPRESSION: 1. No acute intracranial abnormality. Signer Name: Matt Gaitan MD Signed: 08/22/2021 10:13 AM Workstation Name: [id number] and some [id number] Transcribed By: JS Dictated By: MATT GAITAN MD Electronically Authenticated By: MATT GAITAN MD Signed Date/Time: 08/22/21 101 DD/ 11 TD/TT: - Medical Decision Making 45-year-old -Citizen Of [place] female presents to the emergency room complaining of right side numbness and tingling that she noticed last night. Patient states that when she was in the grocery store she started feeling uncomfortable started having some numbness to her right forearm. She left the grocery store ate something and then proceeded home. Patient states she still continued to have numbness and tingling. She states this morning she woke up with increased numbness and tingling with a slight headache. She has a current history of hypertension and diabetes. Patient does admit that she is not compliant on her diabetic medication and has not been on it for a month. Patient states that she was recent diagnosed with diabetes in February. She states she does not check her blood sugar. She comes in today with her blood sugar 331. She has a history of hypertension is currently on amlodipine 5 mg daily and losartan 100 mg daily. She is followed by Dr. Merino at [facility]. Discussed case with Dr. Pedro Garcia she agreed patient needs a CT scan will order a stroke protocol. Patient be admitted for stroke work-up. - Thrombolytic Inclusion/Exclusion Thrombolytic Exclusion Criteria: Symptom Onset > 3 Hours Thrombolytic Inclusion Criteria: Negative CT Scan for ICH Critical care attestation.: If time is entered above; I have spent that time in minutes in the direct care of this critically ill patient, excluding procedure time. ED Disposition Clinical Impression: Neurological deficit present, Diabetes Disposition: HOME / SELF CARE / HOMELESS Is pt being admited?: Yes Does the pt Need Aspirin: No Condition: Stable
[2021-08-22 09:59] LABS: Basophils # (Auto) 0.1 K/mm3 (0.0-0.1); Basophils % (Auto) 1.2 % (0.0-1.8); Eosinophils # (Auto) 0.3 K/mm3 (0.0-0.4); Eosinophils % (Auto) 6.9 % (0.0-4.3); Hematocrit 30.8 % (30.3-42.9); Hemoglobin 10.7 gm/dl (10.1-14.3); Lymphocytes # (Auto) 1.7 K/mm3 (1.2-5.4); Lymphocytes % (Auto) 34.6 % (13.4-35.0); Mean Corpuscular HGB Conc 35 % (30-34); Mean Corpuscular Volume 79 fl (79-97); Monocytes # (Auto) 0.6 K/mm3 (0.0-0.8); Monocytes % (Auto) 11.5 % (0.0-7.3); Platelet Count 305 K/mm3 (140-440); Red Blood Count 3.91 M/mm3 (3.65-5.03); Red Cell Distribution Width 17.5 % (13.2-15.2)
[2021-08-22 10:16] LABS: Partial Thromboplastin Time 27.5 Sec. (24.2-36.6); Thrombin Time 17.9 Sec. (15.1-19.6)
--- NOTE | 2021-08-22 10:17 | Cat Scan Report ---
CT HEAD WITHOUT CONTRAST INDICATION / CLINICAL INFORMATION: Stroke symptoms. TECHNIQUE: All CT scans at this location are performed using CT dose reduction for ALARA by means of automated exposure control. COMPARISON: None available. FINDINGS: BRAIN PARENCHYMA: No acute intracranial hemorrhage. No evidence of recent infarct. No mass effect or midline shift. VENTRICULAR SYSTEM/EXTRA-AXIAL SPACES: Ventricles are normal for age. No extra-axial fluid collection . ORBITS: Normal as visualized. SKELETAL SYSTEM/SOFT TISSUES: Normal bones and soft tissues. PARANASAL SINUSES/MASTOID AIR CELLS: No significant abnormality. ADDITIONAL FINDINGS: None. IMPRESSION: 1. No acute intracranial abnormality. Signer Name: Mina Gaitan MD Signed: 08/22/2021 10:13 AM Workstation Name: [id number]
[2021-08-22 10:23] LABS: Creatine Kinase MB 1.9 ng/mL (0.0-4.0)
[2021-08-22 10:26] LABS: Alanine Aminotransferase 10 units/L (7-56); BUN/Creatinine Ratio 22; Blood Urea Nitrogen 20 mg/dL (7-17); Calcium 9.1 mg/dL (8.4-10.2); Hemolysis Index 1
[2021-08-22] MEDS ORDERED: traMADol 50 MG TAB PO ONE (11:16)
[2021-08-22] MEDS ORDERED: MORPHINE 2 MG/1 ML INJ IV PRN (11:36)
[2021-08-22] MEDS ORDERED: ONDANSETRON 4 MG/2 ML INJ IV PRN (11:36)
[2021-08-22] MEDS ORDERED: ACETAMINOPHEN 325 MG TAB PO PRN (11:36)
[2021-08-22] MEDS ORDERED: DEXTROSE 50% IN WATER (25GM) 50 ML SYRINGE IV PRN (12:15)
--- NOTE | 2021-08-22 12:24 | History and Physical Report ---
History of Present Illness Date of examination: 08/22/21 Date of admission: 08/22/2021 Chief complaint: R sided numbness and tingling History of present illness: Patient is a 45-year-old lady with a history of hypertension and diabetes who presented with complaints of acute onset right sided numbness and tingling. Patient reports being in a supermarket when she noticed numbness in her right upper extremity. The numbness eventually spread to her face and all the way down to the right lower extremity. She denies any preceding headache, visual changes, lightheadedness, dizziness, slurred speech, or associated weakness. She also denies chest pain and shortness of breath. She has not had previous episodes like this in the past. She was taken Metformin for her diabetes but stopped due to ill feeling. She does not check her blood glucose at home. She does take losartan 100 mg and amlodipine 10 mg daily for blood pressure. CT head was negative for acute findings. Labs notable for blood sugar of 331. She was admitted overnight for observation. Past History Past Medical History: diabetes, hypertension Past Surgical History: Other (fibroid removal) Social history: smoking (smokes 1/4 pack per day) Family history: no significant family history Medications and Allergies Allergies Allergy/AdvReac Type Severity Reaction Status Date / Time Sulfa (Sulfonamide AdvReac Vomiting Verified 07/20/18 19:53 Antibiotics) Home Medications Medication Instructions Recorded Confirmed Last Taken Type Blood-Glucose Meter [Accu-Chek 1 each MC ONCE #1 each 02/18/21 08/22/21 Unknown Rx Guide Monitor System] metFORMIN [Glucophage] 500 mg PO BID #28 tablet 02/18/21 08/22/21 Unknown Rx Active Meds: Active Medications Acetaminophen (Acetaminophen 325 Mg Tab) 650 mg PO Q4H PRN PRN Reason: Pain MILD(1-3)/Fever >100.5/[place] Amlodipine Besylate (Amlodipine 5 Mg Tab) 10 mg PO DAILY [facility] Dextrose (Dextrose 50% In Water (25gm) 50 Ml Syringe) 50 ml IV Q30MIN PRN; Protocol PRN Reason: Hypoglycemia Gabapentin (Gabapentin 500 Mg/10 Ml Oral Liqd) 300 mg PO TID [facility] Insulin Human Regular (Insulin Regular, Human 100 Units/1 Ml) 0 units SUB-Q Q6H [place]; Protocol Losartan Potassium (Losartan 50 Mg Tab) 100 mg PO DAILY [place] Morphine Sulfate (Morphine 2 Mg/1 Ml Inj) 2 mg IV Q4H PRN PRN Reason: Pain, Moderate (4-6) Ondansetron HCl (Ondansetron 4 Mg/2 Ml Inj) 4 mg IV Q8H PRN PRN Reason: Nausea And Vomiting Oxycodone/Acetaminophen (Oxycodone /Acetaminophen 5-325mg Tab) 1 tab PO Q6H PRN PRN Reason: Pain, Moderate (4-6) Sodium Chloride (Sodium Chloride 0.9% 10 Ml Flush Syringe) 10 ml IV BID [place] Sodium Chloride (Sodium Chloride 0.9% 10 Ml Flush Syringe) 10 ml IV PRN PRN PRN Reason: LINE FLUSH Review of Systems All systems: negative Neurological: numbness, tingling, headaches Exam - Physical Exam Narrative exam: GENERAL: Well-developed well-nourished. Sitting on the side of the bed in no acute distress. HEENT: Normocephalic. Atraumatic. NECK: Supple. No carotid bruits auscultated. CHEST/LUNGS: CTAB on room air HEART/CARDIOVASCULAR: RRR. No murmur, rubs or gallops appreciated. ABDOMEN: +BS. NT/ND. SKIN: No rashes noted. NEURO: Cranial nerves II through XII intact. Decreased sensation over right side of the face, right upper extremity, and right lower extremity to mid [place]. Normal sensation intact on the left. MUSCULOSKELETAL: No joint effusion appreciated EXTREMITIES: No cyanosis, clubbing or edema. PSYCH: Cooperative. - Constitutional Vitals: Temp Pulse Resp BP Pulse Ox 98.7 F 80 18 152/92 100 08/22/21 08:44 08/22/21 08:44 08/22/21 08:58 08/22/21 08:44 08/22/21 08:58 - Allied Health Allied health notes reviewed: nursing HEART Score - HEART Score Troponin: Troponin T < 0.010 ng/mL (0.00-0.029) 08/22/21 09:41 Results - Labs CBC & Chem 7: 08/22/21 09:41 10 09:41 Labs: Laboratory Last Values WBC 5.0 K/mm3 (4.5-11.0) 08/22/21 09:41 RBC 3.91 M/mm3 (3.65-5.03) 10/02/21 09:41 Hgb 10.7 gm/dl (10.1-14.3) 08/22/21 09:41 Hct 30.8 % (30.3-42.9) 08/22/21 09:41 MCV 79 fl (79-97) 08/22/21 09:41 MCH 27 pg (28-32) L 08/22/21 09:41 MCHC 35 % (30-34) H 08/22/21 09:41 RDW 17.5 % (13.2-15.2) H 08/22/21 09:41 Plt Count 305 K/mm3 (140-440) 08/22/21 09:41 Lymph % (Auto) 34.6 % (13.4-35.0) 08/22/21 09:41 Desha % (Auto) 11.5 % (0.0-7.3) H 08/22/21 09:41 Eos % (Auto) 6.9 % (0.0-4.3) H 08/22/21 09:41 Baso % (Auto) 1.2 % (0.0-1.8) 08/22/21 09:41 Lymph # (Auto) 1.7 K/mm3 (1.2-5.4) 08/22/21 09:41 Desha # (Auto) 0.6 K/mm3 (0.0-0.8) 08/22/21 09:41 Eos # (Auto) 0.3 K/mm3 (0.0-0.4) 08/22/21 09:41 Baso # (Auto) 0.1 K/mm3 (0.0-0.1) 08/22/21 09:41 Seg Neutrophils % 45.8 % (40.0-70.0) 08/22/21 09:41 Seg Neutrophils # 2.3 K/mm3 (1.8-7.7) 08/22/21 09:41 PT 13.7 Sec. (12.2-14.9) 08/22/21 09:41 INR 1.00 (0.87-1.13) 08/22/21 09:41 APTT 27.5 Sec. (24.2-36.6) 08/22/21 09:41 Thrombin Time 17.9 Sec. (15.1-19.6) 08/22/21 09:41 Sodium 135 mmol/L (137-145) L 08/22/21 09:41 Potassium 4.1 mmol/L (3.6-5.0) 08/22/21 09:41 Chloride 101.1 mmol/L (98-107) 08/22/21 09:41 Carbon Dioxide 20 mmol/L (22-30) L 08/22/21 09:41 Anion Gap 18 mmol/L 08/22/21 09:41 BUN 20 mg/dL (7-17) H 08/22/21 09:41 Creatinine 0.9 mg/dL (0.6-1.2) 08/22/21 09:41 Estimated GFR > 60 ml/min 08/22/21 09:41 BUN/Creatinine Ratio 22 % 08/22/21 09:41 Glucose 281 mg/dL (65-100) H 08/22/21 09:41 POC Glucose 331 mg/dL (70-105) H 08/22/21 08:44 Calcium 9.1 mg/dL (8.4-10.2) 08/22/21 09:41 Total Bilirubin < 0.20 mg/dL (0.1-1.2) 08/22/21 09:41 AST 9 units/L (5-40) 08/22/21 09:41 ALT 10 units/L (7-56) 08/22/21 09:41 Alkaline Phosphatase 87 units/L (35-129) 08/22/21 09:41 Total Creatine Kinase 80 units/L (30-135) 08/22/21 09:41 CK-MB (CK-2) 1.9 ng/mL (0.0-4.0) 08/22/21 09:41 CK-MB (CK-2) Rel Index 2.3 (0-4) 08/22/21 09:41 Troponin T < 0.010 ng/mL (0.00-0.029) 08/22/21 09:41 Total Protein 7.6 g/dL (6.3-8.2) 08/22/21 09:41 Albumin 4.0 g/dL (3.9-5) 08/22/21 09:41 Albumin/Globulin Ratio 1.1 % 08/22/21 09:41 - Imaging and Cardiology CT Scan - head: report reviewed, image reviewed Assessment and Plan Assessment and plan: 45-year-old female with history of uncontrolled diabetes and hypertension who reported with numbness and tingling in right side of the body. #Right-sided polyneuropathy -CT head negative for masses or acute stroke -diminished sensation along right side of the body -TSH, B12 ordered -trial of gabapentin 300mg 3 times daily -etiology unknown at this time #Type 2 diabetes, uncontrolled -Prescribed Metformin, not taking -Glucose 331 on admission -Sliding scale insulin -A1c ordered -discussed the importance of glycemic control, patient prefers oral agents -will need close outpatient follow-up #Hyperlipidemia -Total cholesterol 237, LDL is 145 -ASCVD 10-year risk 15.4%, lifetime risk 50% -will start atorvastatin 20 mg nightly and aspirin #Hypertension -resume losartan and amlodipine at home doses #Tobacco dependence -currently smokes 4 to 5 cigarettes/day -counseled about cessation Advance Directives: No VTE prophylaxis?: Mechanical Plan of care discussed with patient/family: Yes
[2021-08-22 12:41] LABS: Chol/HDL Ratio 4.83 %
[2021-08-22] MEDS ORDERED: GABAPENTIN 500 MG/10 ML ORAL LIQD PO SCH (14:00)
[2021-08-22] MEDS: oxyCODONE /ACETAMINOPHEN 5-325MG TAB PO PRN ×2 (14:58→23:07)
[2021-08-22] MEDS: LOSARTAN 50 MG TAB PO SCH (15:35)
[2021-08-22] MEDS: GABAPENTIN 300 MG CAP PO SCH ×2 (15:37→23:08)
[2021-08-22] MEDS: amLODIPine 10 MG TAB PO SCH (15:37)
[2021-08-22] MEDS: INSULIN REGULAR, HUMAN 100 UNITS/1 ML SUB-Q SCH ×2 (15:44→23:08)
[2021-08-23] MEDS: ASPIRIN 81 MG TAB CHEW PO SCH ×2 (00:03→09:30)
[2021-08-23] MEDS: INSULIN REGULAR, HUMAN 100 UNITS/1 ML SUB-Q SCH ×2 (01:00→07:18)
[2021-08-23 04:07] LABS: Blood Urea Nitrogen 13 mg/dL (7-17); Calcium 8.9 mg/dL (8.4-10.2); Hemolysis Index 3
[2021-08-23 04:10] LABS: BUN/Creatinine Ratio 22
[2021-08-23] MEDS: GABAPENTIN 300 MG CAP PO SCH (08:19)
[2021-08-23] MEDS: oxyCODONE /ACETAMINOPHEN 5-325MG TAB PO PRN (08:49)
[2021-08-23] MEDS: amLODIPine 10 MG TAB PO SCH (09:29)
[2021-08-23] MEDS: LOSARTAN 50 MG TAB PO SCH (09:30)
--- NOTE | 2021-08-23 12:08 | Discharge Summary ---
Providers - Providers Date of Admission: 08/22/21 15:28 Date of discharge: 08/23/21 Attending physician: MONIK HUFFMAN MD [facility]: [facility] Hospitalization Reason for admission: Right-sided numbness Condition: Stable Hospital course: 45-year-old with history of hypertension and type 2 diabetes who presented with acute onset right-sided numbness and tingling sensation. CT head was found to be negative. She was admitted for observation. Labs were notable for elevated glucose, A1c of 8.8, and hyperlipidemia. She was started on aspirin and statin. Lifestyle modification, the importance of glucose control, smoking cessation and medication compliance was discussed. Patient provided with 30-day supply of medications and advised to follow-up with primary care. Disposition: 01 HOME / SELF CARE / HOMELESS Final Discharge Diagnosis (Prints w/discharge instructions): Polyneuropathy. Type 2 diabetes, uncontrolled. Hyperlipidemia Time spent for discharge: 20 minutes Core Measure Documentation - Palliative Care Palliative Care/ Comfort Measures: Not Applicable - Core Measures Any of the following diagnoses?: none Exam - Physical Exam Narrative exam: GENERAL: Well-developed well-nourished. Sitting on the side of the bed in no acute distress. CHEST/LUNGS: CTAB on room air HEART/CARDIOVASCULAR: RRR. No murmur, rubs or gallops appreciated. ABDOMEN: +BS. NT/ND. NEURO: Cranial nerves II through XII intact. Decreased sensation over right side of the face, right upper extremity, and right lower extremity to mid [place]. Normal sensation intact on the left. MUSCULOSKELETAL: No joint effusion appreciated EXTREMITIES: No cyanosis, clubbing or edema. PSYCH: Cooperative. - Constitutional Vitals: Temp Pulse Resp BP Pulse Ox 98.7 F 77 14 146/92 96 08/22/21 08:44 08/23/21 00:30 08/23/21 00:30 08/23/21 10:45 08/23/21 10:45 Plan Care Plan Goals: Smoking cessation. Better glycemic control. Assessment: Stable. Continues to have neuropathy. Optimization of medical conditions: Started aspirin, statin and glipizide. Patient discharged with prescriptions and instructions to follow primary care. Follow up with: MARISEL MARTIN MD [Primary Care Provider] - 3-5 Days Prescriptions: AtorvaSTATin [Lipitor] 20 mg PO QHS 30 Days #30 tablet Blood-Glucose Meter [Accu-Chek Guide Monitor System] 1 each MC ONCE #1 each Aspirin [Aspirin BABY CHEW TAB] 81 mg PO QDAY 30 Days #30 tab.chew Gabapentin 300 mg PO TID 30 Days #90 capsule glipiZIDE XL [Glucotrol Xl] 2.5 mg PO QAM 30 Days #30 tab.er.24
[2021-08-23 12:38] VITALS: BP 123/83
--- NOTE | 2021-08-25 11:05 | Electrocardiograph Report ---
[facility] Test Date: 2021-08-22 Test Time: 12:31:46 Pat Name: MAXX JIMENEZ Department: Room: [facility] Gender: F Rn Bone Marrow Transplant: [facility] : 1975 Requested By: RADHA VOGEL Order Number: [id number] Reading MD: Liam Hsu Measurements Intervals [place] Rate: 74 P: 18 IN: 194 QRS: -18 QRSD: 93 T: 91 QT: 424 QTc: 471 Interpretive Statements Sinus rhythm Nonspecific T abnrm, anterolateral leads Probable left ventricle hypertrophy Compared to ECG 02/18/2021 12:28:13 T-wave abnormality no longer present Electronically Signed On 08-25-2021 11:05:20 EDT by Liam Hsu
== END 2021-08-23 12:51 | disposition home or self-care (01) | DRG 74 ==
LOC: ED 08:36 → 3A 15:28
PROVIDERS: ADMIT Student in an Organized Health Care Education/Training Program; ATTEND Student in an Organized Health Care Education/Training Program
DX: E11.42 Type 2 diabetes mellitus with diabetic polyneuropathy (principal); E11.65 Type 2 diabetes mellitus with hyperglycemia; F17.200 Nicotine dependence, unspecified, uncomplicated; I10 Essential (primary) hypertension; Z79.899 Other long term (current) drug therapy; Z79.82 Long term (current) use of aspirin; E78.5 Hyperlipidemia, unspecified; Z88.2 Allergy status to sulfonamides
CPT/HCPCS: 36415; 70450; 80048; 80053; 80061; 82550; 82553; 82607; 82962; 83036; 84443; 84484; 85025; 85610; 85670; 85730; 93005; G0378; A9270-GY; J1815; J2405; J7030

== ENCOUNTER 2021-11-26 05:58 | Emergency (ER) | payer BC ==
--- NOTE | 2021-11-26 08:51 | Emergency Department Report ---
ED General Adult HPI - General Chief complaint: Dizziness Stated complaint: HEADACHE AND LIGHT HEADED Time Seen by Provider: 11/26/21 08:50 Source: patient Mode of arrival: Ambulatory Limitations: No Limitations - History of Present Illness Initial comments: 45 YO FEMALE, VERY PLEASANT. COMES TO ER WITH HEADACHE. SHE WAS DX WITH DM II LAST FEBRUARY AND HAS LOST INSURANCE SO SHE HAS BEEN OFF HER MEDS. SHE STATES DR HUFFMAN HERE IN ER SAW AND TX HER PRIOR SHE DENIES CP OR SOB NO FEVER OR CHILLS NO BACK PAIN NO N/V/D NO POLYURIA OR DIPSIA. SHE HAS LOST WEIGHT INTENTIONALLY SINCE BEING DX. SHE IS OUT OF HER GLIPIZIDE AND LOSARTAN/K SHE STATES THE GLIPIZIDE HAS MADE HER FEEL BAD. SHE WAS ON METFORMIN PRIOR AND DR HUFFMAN TOOK HER OFF IT AND CHANGED HER TO GLIPIZIDE. SHE WANTS TO TAKE METFORMIN BECAUSE SHE STATES DR HUFFMAN TOLD HER THIS WOULD MAKE HER FEEL WORSE THAN THE METFORMIN. SHE HAS BEEN TAKING MEDS UNTIL 3 DAYS AGO SHE IS ON DM DIET SHE WORKS AND IS IN SCHOOL SHE HAS INC STRESS WITH HER HEALTH AND INSURANCE STATUS -: Gradual, days(s) Worsens with: none Associated Symptoms: denies other symptoms, headaches Treatments Prior to Arrival: none - Related Data Previous Rx's Medication Instructions Recorded Last Taken Type Aspirin [Aspirin BABY CHEW TAB] 81 mg PO QDAY 30 Days #30 tab.chew 08/23/21 Unknown Rx AtorvaSTATin [Lipitor] 20 mg PO QHS 30 Days #30 tablet 08/23/21 Unknown Rx Blood-Glucose Meter [Accu-Chek 1 each MC ONCE #1 each 08/23/21 Unknown Rx Guide Monitor System] amLODIPine 10 mg PO DAILY tablet 08/23/21 Unknown Rx glipiZIDE XL [Glucotrol Xl] 2.5 mg PO QAM 30 Days #30 tab.er.24 08/23/21 Unknown Rx Gabapentin 300 mg PO TID 30 Days #90 capsule 11/26/21 Unknown Rx Losartan [Cozaar] 100 mg PO DAILY #30 tablet 11/26/21 Unknown Rx Potassium Chloride 8 meq PO DAILY #30 11/26/21 Unknown Rx metFORMIN [Glucophage] 500 mg PO BID #60 11/26/21 Unknown Rx Allergies Allergy/AdvReac Type Severity Reaction Status Date / Time Sulfa (Sulfonamide AdvReac Vomiting Verified 07/20/18 19:53 Antibiotics) ED Review of Systems ROS: Stated complaint: HEADACHE AND LIGHT HEADED Other details as noted in HPI Comment: All other systems reviewed and negative ED Past Medical Hx - Past Medical History Previous Medical History?: Yes Hx Hypertension: Yes (NEW DX 01/11) Hx Diabetes: Yes - Surgical History Past Surgical History?: Yes Additional Surgical History: UTERINE FIBROID SURGERY IN 2019 - Family History Family history: no significant - Social History Smoking Status: Current Some Day Smoker Substance Use Type: None - Medications Home Medications: Home Medications Medication Instructions Recorded Confirmed Last Taken Type Aspirin [Aspirin BABY CHEW TAB] 81 mg PO QDAY 30 Days #30 tab.chew 08/23/21 Unknown Rx AtorvaSTATin [Lipitor] 20 mg PO QHS 30 Days #30 tablet 08/23/21 Unknown Rx Blood-Glucose Meter [Accu-Chek 1 each MC ONCE #1 each 08/23/21 Unknown Rx Guide Monitor System] amLODIPine 10 mg PO DAILY tablet 08/23/21 Unknown Rx glipiZIDE XL [Glucotrol Xl] 2.5 mg PO QAM 30 Days #30 tab.er.24 08/23/21 Unknown Rx Gabapentin 300 mg PO TID 30 Days #90 capsule 11/26/21 Unknown Rx Losartan [Cozaar] 100 mg PO DAILY #30 tablet 11/26/21 Unknown Rx Potassium Chloride 8 meq PO DAILY #30 11/26/21 Unknown Rx metFORMIN [Glucophage] 500 mg PO BID #60 11/26/21 Unknown Rx ED Physical Exam - General Limitations: No Limitations General appearance: alert, in no apparent distress - Head Head exam: Present: atraumatic, normocephalic - Eye Eye exam: Present: normal appearance - ENT ENT exam: Present: mucous membranes moist - Neck Neck exam: Present: normal inspection - Respiratory Respiratory exam: Present: normal lung sounds bilaterally. Absent: respiratory distress - Cardiovascular Cardiovascular Exam: Present: regular rate, normal rhythm. Absent: systolic murmur, diastolic murmur, rubs, gallop - GI/Abdominal GI/Abdominal exam: Present: soft, normal bowel sounds - Extremities Exam Extremities exam: Present: normal inspection - Back Exam Back exam: Present: normal inspection - Neurological Exam Neurological exam: Present: alert, oriented X3 - Psychiatric Psychiatric exam: Present: normal affect, normal mood - Skin Skin exam: Present: warm, dry, intact, normal color. Absent: rash ED Course Vital Signs 11/26/21 06:00 Temperature 98.2 F Pulse Rate 97 H Respiratory 18 Rate Blood Pressure 150/95 O2 Sat by Pulse 99 Oximetry ED Medical Decision Making - Lab Data Result diagrams: 11/26/21 09:48 11/26/21 09:48 - Radiology Data Radiology results: report reviewed, image reviewed NAP - Medical Decision Making Vital Signs 11/26/21 11/26/21 06:00 12:12 Temperature 98.2 F 98.4 F Pulse Rate 97 H 85 Respiratory 18 14 Rate Blood Pressure 150/95 Blood Pressure 149/99 [Right] O2 Sat by Pulse 99 98 Oximetry Lab Results 11/26/21 11/26/21 11/26/21 Range/Units 06:01 09:48 09:48 WBC 2.7 L (4.5-11.0) K/mm3 RBC 4.68 (3.65-5.03) M/mm3 Hgb 11.8 (10.1-14.3) gm/dl Hct 38.2 (30.3-42.9) % MCV 82 (79-97) fl MCH 25 L (28-32) pg MCHC 31 (30-34) % RDW 15.9 H (13.2-15.2) % Plt Count 318 (140-440) K/mm3 [place] % (Auto) Corn [employer] Sodium 138 (137-145) mmol/L Potassium 4.0 (3.6-5.0) mmol/L Chloride 98.2 (98-107) mmol/L Carbon Dioxide 24 (22-30) mmol/L Anion Gap 20 mmol/L BUN 8 (7-17) mg/dL Creatinine 0.6 (0.6-1.2) mg/dL Estimated GFR > 60 ml/min BUN/Creatinine Ratio 13 % Glucose 196 H (65-100) mg/dL POC Glucose 227 H (70-105) mg/dL Calcium 9.7 (8.4-10.2) mg/dL Total Bilirubin < 0.20 (0.1-1.2) mg/dL AST 16 (5-40) units/L ALT 18 (7-56) units/L Alkaline Phosphatase 86 (35-129) units/L Troponin T < 0.010 (0.00-0.029) ng/mL Total Protein 8.0 (6.3-8.2) g/dL Albumin 4.4 (3.9-5) g/dL Albumin/Globulin Ratio 1.2 % Urine Color (Yellow) Urine Turbidity (Clear) Urine pH (5.0-7.0) Ur Specific [place] (1.003-1.030) Urine Protein (Negative) mg/dL Urine Glucose (UA) (Negative) mg/dL Urine Ketones (Negative) mg/dL Urine Blood (Negative) Urine Nitrite (Negative) Urine Bilirubin (Negative) Urine Urobilinogen (<2.0) mg/dL Ur Leukocyte Esterase (Negative) Urine WBC (Auto) (0.0-6.0) /HPF Urine RBC (Auto) (0.0-6.0) /HPF U Epithel Cells (Auto) (0-13.0) /HPF Urine Mucus /HPF 11/26/21 Range/Units 11:31 WBC (4.5-11.0) K/mm3 RBC (3.65-5.03) M/mm3 Hgb (10.1-14.3) gm/dl Hct (30.3-42.9) % MCV (79-97) fl MCH (28-32) pg MCHC (30-34) % RDW (13.2-15.2) % Plt Count (140-440) K/mm3 [place] % (Auto) Sodium (137-145) mmol/L Potassium (3.6-5.0) mmol/L Chloride (98-107) mmol/L Carbon Dioxide (22-30) mmol/L Anion Gap mmol/L BUN (7-17) mg/dL Creatinine (0.6-1.2) mg/dL Estimated GFR ml/min BUN/Creatinine Ratio % Glucose (65-100) mg/dL POC Glucose (70-105) mg/dL Calcium (8.4-10.2) mg/dL Total Bilirubin (0.1-1.2) mg/dL AST (5-40) units/L ALT (7-56) units/L Alkaline Phosphatase (35-129) units/L Troponin T (0.00-0.029) ng/mL Total Protein (6.3-8.2) g/dL Albumin (3.9-5) g/dL Albumin/Globulin Ratio % Urine Color Yellow (Yellow) Urine Turbidity Slightly-cloudy (Clear) Urine pH 5.0 (5.0-7.0) Ur Specific [place] 1.024 (1.003-1.030) Urine Protein >500 (Negative) mg/dL Urine Glucose (UA) Neg (Negative) mg/dL Urine Ketones Neg (Negative) mg/dL Urine Blood Neg (Negative) Urine Nitrite Neg (Negative) Urine Bilirubin Neg (Negative) Urine Urobilinogen < 2.0 (<2.0) mg/dL Ur Leukocyte Esterase Neg (Negative) Urine WBC (Auto) 4.0 (0.0-6.0) /HPF Urine RBC (Auto) 2.0 (0.0-6.0) /HPF U Epithel Cells (Auto) 5.0 (0-13.0) /HPF Urine Mucus 1+ /HPF LABS NOTED UA NOTED DISCUSSED FINDINGS WITH PT WE HAD A LONG DISCUSSION ABOUT CARE FOR CHRONIC ILLNESS SHE HAS BEEN GIVEN A LIST OF RESOURCES AND PLETHORA OF INFO TO HELP HER MANAGE HER ILLNESS SHE IS AMBULATORY, NON ILL, NON TOXIC ON EXAM TAKING PO HEADACHE IMPROVED WITH MOTRIN DC HOME WITH DETAILED DC PLAN OF CARE INCLUDING DIET, ACTIVITY, MEDS AND FOLLOW UP. SHE DOES HAVE A BLOOD GLUCOSE MACHINE WITH HER AND DOES CHECK HER BLOOD GLUCOSE 4 X PER DAY. PT VERBALIZES UNDERSTANDING OF PLAN OF CARE. - Differential Diagnosis RO DKA/HYPERGLYCEMIA/HHNK/INFECTION Critical care attestation.: If time is entered above; I have spent that time in minutes in the direct care of this critically ill patient, excluding procedure time. ED Disposition Clinical Impression: Diabetes, Medication refill, Nonadherence to medication, History of hypertension, Hyperglycemia Disposition: 01 HOME / SELF CARE / HOMELESS Is pt being admited?: No Does the pt Need Aspirin: No Condition: Stable Instructions: Type 2 Diabetes Mellitus, Diagnosis, Adult, Form - Daily Diabetes Record, Living With Diabetes, Type 2 Diabetes Mellitus, Self Care, Adult, Carbohydrate Counting for Diabetes Mellitus, Adult, Preventing Diabetes Mellitus Complications, Type 2 Diabetes Mellitus, Diagnosis, Adult, [id number], Diabetes Mellitus and Exercise, Diabetes Mellitus Type 2 in Adults (ED) Additional Instructions: [facility] LOOK AT THEIR WEBSITE FOR DIABETES SUPPORT GROUPS [email or web address] IS A GOOD SOURCE OF INFORMATION FOLLOW UP WE DISCUSSED STAY WELL HYDRATED WITH WATER WHEN BLOOD SUGAR IS HIGH ONE TENS TO BE DEHYDRATED-- CAUSING HEADACHE DIABETIC DIET DAILY EXERCISE MEDS ORDERED BY MD Prescriptions: Losartan [Cozaar] 100 mg PO DAILY #30 tablet Gabapentin 300 mg PO TID 30 Days #90 capsule metFORMIN [Glucophage] 500 mg PO BID #60 Potassium Chloride 8 meq PO DAILY #30 Referrals: PRIMARY MD RAHUL [Primary Care Provider] - 3-5 Days KASSIDY NICOLAS MD [Staff Physician] - 3-5 Days [facility] [Outside] - 3-5 Days Forms: Work/School Release Form(ED) Time of Disposition: 11:29
--- NOTE | 2021-11-26 09:37 | XRay Report ---
CHEST PA AND LATERAL VIEWS INDICATION: dizzy; htn; new dm. COMPARISON: 02/18/21 FINDINGS: Support devices: None. Heart: Within normal limits. Lungs/Pleura: No acute pulmonary or pleural findings. IMPRESSION: 1. No acute findings. Signer Name: Kade Moreau MD Signed: 11/26/2021 9:33 AM Workstation Name: [id number]
[2021-11-26] MEDS ORDERED: IBUPROFEN 800 MG TAB PO ONE (10:08)
[2021-11-26 10:39] LABS: Hematocrit 38.2 % (30.3-42.9); Hemoglobin 11.8 gm/dl (10.1-14.3); Mean Corpuscular HGB Conc 31 % (30-34); Mean Corpuscular Volume 82 fl (79-97); Platelet Count 318 K/mm3 (140-440); Red Blood Count 4.68 M/mm3 (3.65-5.03); Red Cell Distribution Width 15.9 % (13.2-15.2)
[2021-11-26 11:00] LABS: Alanine Aminotransferase 18 units/L (7-56); Albumin 4.4 g/dL (3.9-5); Blood Urea Nitrogen 8 mg/dL (7-17); Calcium 9.7 mg/dL (8.4-10.2); Hemolysis Index 12
[2021-11-26 11:12] LABS: BUN/Creatinine Ratio 13
[2021-11-26 11:50] LABS: Bilirubin,Urine NEG (Negative); Blood,Urine NEG (Negative); Color,Urine Yellow (Yellow); Mucus,Urine 1+ /HPF; Urobilinogen,Urine < 2.0 mg/dL (<2.0)
[2021-11-26 11:51] LABS: Protein,Urine >500 mg/dL (Negative)
[2021-11-26 12:21] VITALS: BP 149/99
[2021-11-26 13:13] LABS: Basophils % (Manual) 0 % (0.0-1.8); Eosinophils % (Manual) 0 % (0.0-4.3); Hypochromasia 1+; Platelet Estimate Consistent w Auto; RBC Morphology Normal; Total Cells Counted 100
--- NOTE | 2021-11-27 13:04 | Electrocardiograph Report ---
[facility] Test Date: 2021-11-26 Test Time: 09:30:51 Pat Name: MAXX JIMENEZ Department: Room: Gender: F Activities Leader: JOEY KOEHLERB: 1975 Requested By: GÓMEZ OSBORNE Order Number: [id number] Reading MD: Liam Hsu Measurements Intervals [place] Rate: 88 P: 55 HI: 193 QRS: -21 QRSD: 86 T: 132 QT: 380 QTc: 459 Interpretive Statements Sinus rhythm Probable left atrial enlargement Low voltage, precordial leads Nonspecific T abnormalities, lateral leads Compared to ECG 08/22/2021 12:31:46 No significant change Electronically Signed On 11-27-2021 13:04:28 EST by Liam Hsu
== END 2021-11-26 12:12 | disposition home or self-care (01) ==
LOC: ED 05:58
DX: E11.65 Type 2 diabetes mellitus with hyperglycemia (principal); Z76.0 Encounter for issue of repeat prescription; Z98.890 Other specified postprocedural states; F17.200 Nicotine dependence, unspecified, uncomplicated; Z88.1 Allergy status to other antibiotic agents
CPT/HCPCS: 36415; 71046; 80053; 81001; 82962; 84484; 85007; 85025; 93005; 99284

== ENCOUNTER 2022-04-19 09:24 | Emergency (ER) | payer BC ==
[2022-04-19] MEDS ORDERED: CLINDAMYCIN 600 MG/50 mL 600 MG/50 ML BAG IV ONE (13:20)
[2022-04-19] MEDS ORDERED: MORPHINE 4 MG/1 ML INJ IV ONE (13:20)
[2022-04-19] MEDS ORDERED: SODIUM CHLORIDE 0.9% 1000 ML 1,000 ML IV ONE ×2 (13:20→14:41)
[2022-04-19] MEDS ORDERED: KETOROLAC 30 MG/1 ML INJ IV ONE (13:29)
[2022-04-19 14:17] LABS: Basophils # (Auto) 0.1 K/mm3 (0.0-0.1); Eosinophils # (Auto) 0.2 K/mm3 (0.0-0.4); Eosinophils % (Auto) 2.5 % (0.0-4.3); Hematocrit 32.1 % (30.3-42.9); Hemoglobin 10.2 gm/dl (10.1-14.3); Lymphocytes # (Auto) 1.4 K/mm3 (1.2-5.4); Lymphocytes % (Auto) 14.9 % (13.4-35.0); Mean Corpuscular HGB Conc 32 % (30-34); Mean Corpuscular Volume 78 fl (79-97); Monocytes # (Auto) 0.9 K/mm3 (0.0-0.8); Monocytes % (Auto) 9.3 % (0.0-7.3); Platelet Count 359 K/mm3 (140-440); Red Blood Count 4.11 M/mm3 (3.65-5.03); Red Cell Distribution Width 16.8 % (13.2-15.2)
[2022-04-19 14:38] LABS: BUN/Creatinine Ratio 13; Blood Urea Nitrogen 9 mg/dL (7-17); Calcium 9.3 mg/dL (8.4-10.2); Hemolysis Index 8
[2022-04-19] MEDS ORDERED: INSULIN REGULAR, HUMAN 100 UNITS/1 ML IV ONE (15:35)
--- NOTE | 2022-04-19 15:42 | Cat Scan Report ---
CT CHEST WITH CONTRAST INDICATION / CLINICAL INFORMATION: Right breast pain with swelling right; r/o abscess. TECHNIQUE: Axial CT images were obtained through the chest after 85 cc Omnipaque [address] scans at this location are performed using CT dose reduction for ALARA by means of automated expo sure control. COMPARISON: None available. FINDINGS: HEART: No significant abnormality. CORONARY ARTERY CALCIFICATION: Absent -- None. THORACIC AORTA: No significant abnormality. MEDIASTINUM / ERIC: No significant abnormality. PLEURA: No pleural effusion. No pneumothorax. LUNGS: No acute air space or interstitial disease. ADDITIONAL FINDINGS: There is a 10 cm encapsulated fluid collection in the right subareolar region. T here is associated skin thickening. Mild soft tissue stranding is present in the adjacent fat. No gas is seen in the collection. The left breast is normal. There are multiple mildly enlarged right axill eloisa lymph nodes. The largest lymph node measures 2.5 x 1.2 cm. UPPER ABDOMEN: No significant abnormality. SKELETAL SYSTEM: No significant abnormality. IMPRESSION: 10 cm abscess in the subareolar region of the right breast. Mild associated right axillar y lymphadenopathy is probably reactive. Signer Name: Sarthak Narvaez MD Signed: 04/19/2022 3:37 PM Workstation Name: [id number]
--- NOTE | 2022-04-19 15:42 | Emergency Department Report ---
- General Chief complaint: Skin/Abscess/Foreign Body Stated complaint: BOIL ON RT BREAST Time Seen by Provider: 04/19/22 13:19 Source: patient Mode of arrival: Ambulatory Limitations: No Limitations - History of Present Illness Initial comments: This is a 46-year-old female nontoxic, well nourished in appearance, no acute signs of distress presents to the ED with c/o of redness and pain with swelling to right breast area x several days. Patient denies any pus or drainage. Pat ient denies any fever, chills, nausea, vomiting, chest pain, shortness of breath, headache or stiff neck. Patient stated allergies to sulfa. Patient did has history of hypertension and diabetes which she was prescribed metformin which she does not take at this time. Patient stated metformin makes her not feel well. MD complaint: abscess/boil -: days(s) Severity: mild Severity scale (0 -10): 8 Quality: aching Consistency: constant Improves with: none Worsens with: none Associated symptoms: denies other symptoms Treatments Prior to Arrival: none - Related Data Previous Rx's Medication Instructions Recorded Last Taken Type Aspirin [Aspirin BABY CHEW TAB] 81 mg PO QDAY 30 Days #30 tab.chew 08/23/21 Unknown Rx AtorvaSTATin [Lipitor] 20 mg PO QHS 30 Days #30 tablet 08/23/21 Unknown Rx Blood-Glucose Meter [Accu-Chek 1 each MC ONCE #1 each 08/23/21 Unknown Rx Guide Monitor System] amLODIPine 10 mg PO DAILY tablet 08/23/21 Unknown Rx glipiZIDE XL [Glucotrol Xl] 2.5 mg PO QAM 30 Days #30 tab.er.24 08/23/21 Unknown Rx Gabapentin 300 mg PO TID 30 Days #90 capsule 11/26/21 Unknown Rx Losartan [Cozaar] 100 mg PO DAILY #30 tablet 11/26/21 Unknown Rx Potassium Chloride 8 meq PO DAILY #30 11/26/21 Unknown Rx metFORMIN [Glucophage] 500 mg PO BID #60 11/26/21 Unknown Rx Naproxen 500 mg PO Q12H PRN #12 tab 04/19/22 Unknown Rx cephALEXin [Keflex] 500 mg PO Q6HR #28 capsule 04/19/22 Unknown Rx Allergies Allergy/AdvReac Type Severity Reaction Status Date / Time Sulfa (Sulfonamide AdvReac Vomiting Verified 07/20/18 19:53 Antibiotics) Abscess Boil HPI - HPI Chief Complaint: Skin/Abscess/Foreign Body Stated Complaint: BOIL ON RT BREAST Time Seen by Provider: 04/19/22 13:19 Home Medications: Previous Rx's Medication Instructions Recorded Last Taken Type Aspirin [Aspirin BABY CHEW TAB] 81 mg PO QDAY 30 Days #30 tab.chew 08/23/21 Unknown Rx AtorvaSTATin [Lipitor] 20 mg PO QHS 30 Days #30 tablet 08/23/21 Unknown Rx Blood-Glucose Meter [Accu-Chek 1 each MC ONCE #1 each 08/23/21 Unknown Rx Guide Monitor System] amLODIPine 10 mg PO DAILY tablet 08/23/21 Unknown Rx glipiZIDE XL [Glucotrol Xl] 2.5 mg PO QAM 30 Days #30 tab.er.24 08/23/21 Unknown Rx Gabapentin 300 mg PO TID 30 Days #90 capsule 11/26/21 Unknown Rx Losartan [Cozaar] 100 mg PO DAILY #30 tablet 11/26/21 Unknown Rx Potassium Chloride 8 meq PO DAILY #30 11/26/21 Unknown Rx metFORMIN [Glucophage] 500 mg PO BID #60 11/26/21 Unknown Rx Naproxen 500 mg PO Q12H PRN #12 tab 04/19/22 Unknown Rx cephALEXin [Keflex] 500 mg PO Q6HR #28 capsule 04/19/22 Unknown Rx Allergies/Adverse Reactions: Allergies Allergy/AdvReac Type Severity Reaction Status Date / Time Sulfa (Sulfonamide AdvReac Vomiting Verified 07/20/18 19:53 Antibiotics) ED Review of Systems ROS: Stated complaint: BOIL ON RT BREAST Other details as noted in HPI Comment: All other systems reviewed and negative Constitutional: denies: chills, fever Eyes: denies: eye pain, eye discharge, vision change ENT: denies: ear pain, throat pain Respiratory: denies: cough, shortness of breath, wheezing Cardiovascular: denies: chest pain, palpitations Endocrine: no symptoms reported Gastrointestinal: denies: abdominal pain, nausea, diarrhea Genitourinary: denies: urgency, dysuria, discharge Musculoskeletal: denies: back pain, joint swelling, arthralgia Skin: denies: rash, lesions Neurological: denies: headache, weakness, paresthesias Psychiatric: denies: anxiety, depression Hematological/Lymphatic: denies: easy bleeding, easy bruising ED Past Medical Hx - Past Medical History Hx Hypertension: Yes (NEW DX 01/11) Hx Diabetes: Yes - Surgical History Additional Surgical History: UTERINE FIBROID SURGERY IN 2019 - Social History Smoking Status: Never Smoker - Medications Home Medications: Home Medications Medication Instructions Recorded Confirmed Last Taken Type Aspirin [Aspirin BABY CHEW TAB] 81 mg PO QDAY 30 Days #30 tab.chew 08/23/21 Unknown Rx AtorvaSTATin [Lipitor] 20 mg PO QHS 30 Days #30 tablet 08/23/21 Unknown Rx Blood-Glucose Meter [Accu-Chek 1 each MC ONCE #1 each 08/23/21 Unknown Rx Guide Monitor System] amLODIPine 10 mg PO DAILY tablet 08/23/21 Unknown Rx glipiZIDE XL [Glucotrol Xl] 2.5 mg PO QAM 30 Days #30 tab.er.24 08/23/21 U nknown Rx Gabapentin 300 mg PO TID 30 Days #90 capsule 11/26/21 Unknown Rx Losartan [Cozaar] 100 mg PO DAILY #30 tablet 11/26/21 Unknown Rx Potassium Chloride 8 meq PO DAILY #30 11/26/21 Unknown Rx metFORMIN [Glucophage] 500 mg PO BID #60 11/26/21 Unknown Rx Naproxen 500 mg PO Q12H PRN #12 tab 04/19/22 Unknown Rx cephALEXin [Keflex] 500 mg PO Q6HR #28 capsule 04/19/22 Unknown Rx ED Physical Exam - General Limitations: No Limitations General appearance: alert, in no apparent distress - Head Head exam: Present: atraumatic, normocephalic - Eye Eye exam: Present: normal appearance - Neck Neck exam: Present: normal inspection, full ROM. Absent: lymphadenopathy - Respiratory Respiratory exam: Absent: respiratory distress - Cardiovascular Cardiovascular Exam: Present: regular rate - Extremities Exam Extremities exam: Present: full ROM - Back Exam Back exam: Present: full ROM - Neurological Exam Neurological exam: Present: alert, oriented X3, normal gait - Psychiatric Psychiatric exam: Present: normal affect, normal mood - Skin Skin exam: Present: warm, dry, intact, normal color. Absent: rash - Expanded Skin Exam Expanded 1 - abscess present here. Mallory fernandez as outboard motors experimental mechanic present during exam. ED Course Vital Signs 04/19/22 09:32 Temperature 97.9 F Pulse Rate 104 H Respiratory 14 Rate Blood Pressure 160/93 O2 Sat by Pulse 99 Oximetry - Reevaluation(s) Reevaluation #1: 04/19/22 15:41 Patient is speaking in full sentences with no signs of distress noted. - Consultations Consultation #1: 04/19/22 15:38 Patient has been consulted with Dr. Jones about patient history, physical exam, and labs/imaging results and agrees to ED plan of care with 4 units IV insulin and discharge plan of care. - I & D Right Chest Type of Procedure: Complex Site: right breast area Blade Size: 11 I & D Procedure: betadine prep, sterile drapes applied, sterile dressing applied , gauze wick placed Progress: Under sterile field, I used Betadine to cleanse the area. I then used 2 percent lidocaine with epi 1-200,000 with 25-gauge 5/8 needle to inject area for anesthetic purposes. Total volume injected 6 mL. I then used an 11 blade to make a 3 cm incision. Purulent drainage has been noted. I then used a hemostat to break the abscess formation. I then used sterile 0.9% normal saline flush to flush the wound with total volume of 40 mL used. I then put a 1 inch iodoform packing to the incision. A sterile 4 x 4 with tape has been applied as dressing. Bleeding is under control. Patient tolerated the procedure well with no signs of distress noted. ED Medical Decision Making - Lab Data Result diagrams: 04/19/22 13:47 04/19/22 13:47 Lab Results 04/19/22 04/19/22 04/19/22 Range/Units 13:47 13:47 13:51 WBC 9.4 (4.5-11.0) K/mm3 RBC 4.11 (3.65-5.03) M/mm3 Hgb 10.2 (10.1-14.3) gm/dl Hct 32.1 (30.3-42.9) % MCV 78 L (79-97) fl MCH 25 L (28-32) pg MCHC 32 (30-34) % RDW 16.8 H (13.2-15.2) % Plt Count 359 (140-440) K/mm3 Lymph % (Auto) 14.9 (13.4-35.0) % Woodward % (Auto) 9.3 H (0.0-7.3) % Eos % (Auto) 2.5 (0.0-4.3) % Baso % (Auto) 1.0 (0.0-1.8) % Lymph # (Auto) 1.4 (1.2-5.4) K/mm3 Woodward # (Auto) 0.9 H (0.0-0.8) K/mm3 Eos # (Auto) 0.2 (0.0-0.4) K/mm3 Baso # (Auto) 0.1 (0.0-0.1) K/mm3 Seg Neutrophils % 72.3 H (40.0-70.0) % Seg Neutrophils # 6.8 (1.8-7.7) K/mm3 Sodium 134 L (137-145) mmol/L Potassium 4.2 (3.6-5.0) mmol/L Chloride 96.4 L (98-107) mmol/L Carbon Dioxide 22 (22-30) mmol/L Anion Gap 20 mmol/L BUN 9 (7-17) mg/dL Creatinine 0.7 (0.6-1.2) mg/dL Estimated GFR > 60 ml/min BUN/Creatinine Ratio 13 % Glucose 406 H (65-100) mg/dL Calcium 9.3 (8.4-10.2) mg/dL HCG, Qual Negative (Negative) - Radiology Data [facility] [address] [place] [address] Cat Scan Report Signed Patient: MAXX JIMENEZ MR#: [id number] : 1975 Acct:[id number] Age/Sex: 46 / F ADM Date: 04/19/22 Loc: ED Attending Dr: Ordering Physician: AGUSTO PEGUERO NP Date of Service: 04/19/22 Procedure(s): CT chest w con Accession Number(s): [id number] cc: AGUSTO PEGUERO NP CT CHEST WITH CONTRAST INDICATION / CLINICAL INFORMATION: Right breast pain with swelling right; r/o abscess. TECHNIQUE: Axial CT images were obtained through the chest after 85 cc Omnipaque [address] scans at this location are performed using CT dose reduction for ALARA by means of automated exposure control. COMPARISON: None available. FINDINGS: HEART: No significant abnormality. CORONARY ARTERY CALCIFICATION: Absent -- None. THORACIC AORTA: No significant abnormality. MEDIASTINUM / ERIC: No significant abnormality. PLEURA: No pleural effusion. No pneumothorax. LUNGS: No acute air space or interstitial disease. ADDITIONAL FINDINGS: There is a 10 cm encapsulated fluid collection in the righ t subareolar region. There is associated skin thickening. Mild soft tissue stranding is present in t he adjacent fat. No gas is seen in the collection. The left breast is normal. There are multiple mi ldly enlarged right axillary lymph nodes. The largest lymph node measures 2.5 x 1.2 cm. UPPER ABDOMEN: No significant abnormality. SKELETAL SYSTEM: No significant abnormality. IMPRESSION: 10 cm abscess in the subareolar region of the right breast. Mild associated right axillary lymphadenopathy is probably reactive. Signer Name: Sarthak Narvaez MD Signed: 04/19/2022 3:37 PM Workstation Name: [id number] Transcribed By: RT Dictated By: Sarthak Narvaez MD Electronically Authenticated By: Sarthak Narvaez MD Signed Date/Time: 04/19/22 153 DD/ 153 TD/TT: - Medical Decision Making This is a 46-year-old female that presents with abscess and uncontrolled DM. Patient is stable and was examined by me. This is incision and drainage and has been performed and patient tolerated well. A sterile dressing has been appli ed. Patient was educated on proper wound care. Patient received insulin and IV and antibiotics with normal saline. Blood sugar decreased to 262 prior to discharge. Patient stated has metformin and was instructed to continue taking it as prescribed by her primary care doctor. Patient was instructed to return in 2 days for packing removal. Patient was instructed to refer to Follow-up with a primary care doctor in 3-5 days or if symptoms worsen and continue return to emergency room as soon as possible. At time of discharge, the patient does not seem toxic or ill in appearance. No acute signs of distress noted. Patient agrees to discharge treatment plan of care. No further questions noted by the patient. Critical care attestation.: If time is entered above; I have spent that time in minutes in the direct care of this critically ill patient, excluding procedure time. ED Disposition Clinical Impression: Noncompliance with medication regimen, Abscess, Encounter for incision and drainage procedure Diabetes Qualifiers: Diabetes mellitus type: type 2 Diabetes mellitus exterminator insulin use: without residential use Diabetes mellitus complication status: without complication Qualified Code(s): E11.9 - Type 2 diabetes mellitus without complications Disposition: HOME / SELF CARE / HOMELESS Is pt being admited?: No Does the pt Need Aspirin: No Condition: Stable Instructions: Skin Abscess, Incision and Drainage, Care After, Diabetes Mellitus Type 2 in Adults (ED) Additional Instructions: Follow-up with a primary care doctor in 3-5 days or if symptoms worsen and continue return to emergency room as soon as possible. Return in 2 days for packing removal. Prescriptions: cephALEXin [Keflex] 500 mg PO Q6HR #28 capsule Naproxen 500 mg PO Q12H PRN #12 tab PRN Reason: Pain , Severe (7-10) Referrals: PRIMARY MD RAHUL [Referring] - 3-5 Days KASSIDY NICOLAS MD [Staff Physician] - 3-5 Days Time of Disposition: 17:36
[2022-04-19] MEDS ORDERED: HYDROmorphone 1 MG/1 ML INJ IV ONE (16:10)
[2022-04-19 18:08] VITALS: BP 122/76
== END 2022-04-19 18:06 | disposition home or self-care (01) ==
LOC: ED 09:24
DX: N61.1 Abscess of the breast and nipple (principal); Z91.14 Patient's other noncompliance with medication regimen; E11.9 Type 2 diabetes mellitus without complications; I10 Essential (primary) hypertension; Z98.890 Other specified postprocedural states; Z88.2 Allergy status to sulfonamides
CPT/HCPCS: 10061; 36415; 71260; 80048; 82962; 84703; 85025; 96361; 96365; 96375; 99284; J1170; J1885; J2270; J7030; J7502; Q9967; J1815

== ENCOUNTER 2022-04-21 14:03 | Emergency (ER) | payer BC ==
[2022-04-21 14:19] VITALS: BP 158/97
--- NOTE | 2022-04-21 14:33 | Emergency Department Report ---
ED Recheck HPI - General Chief Complaint: Laceration/Recheck/Suture Stated Complaint: WOUND RE-DRESS Time Seen by Provider: 04/21/22 14:29 Source: patient Mode of arrival: Ambulatory Limitations: No Limitations - History of Present Illness Initial Comments: 's case and is a 46-year-old that comes to the ER for packing removal from an abscess area of her right breast. She is taking her antibiotics. Denies fever or chills. Endorses pain. Patient ambulatory, nontoxic [id number] on exam MD Complaint: wound re-check -: Gradual, days(s) Initial Visit For: abscess Returns Today for: other Symptoms Since Prior Visit: no new symptoms Associated Symptoms: none - Related Data Previous Rx's Medication Instructions Recorded Last Taken Type Aspirin [Aspirin BABY CHEW TAB] 81 mg PO QDAY 30 Days #30 tab.chew 08/23/21 Unknown Rx AtorvaSTATin [Lipitor] 20 mg PO QHS 30 Days #30 tablet 08/23/21 Unknown Rx Blood-Glucose Meter [Accu-Chek 1 each MC ONCE #1 each 08/23/21 Unknown Rx Guide Monitor System] amLODIPine 10 mg PO DAILY tablet 08/23/21 Unknown Rx glipiZIDE XL [Glucotrol Xl] 2.5 mg PO QAM 30 Days #30 tab.er.24 08/23/21 Unknown Rx Gabapentin 300 mg PO TID 30 Days #90 capsule 11/26/21 Unknown Rx Losartan [Cozaar] 100 mg PO DAILY #30 tablet 11/26/21 Unknown Rx Potassium Chloride 8 meq PO DAILY #30 11/26/21 Unknown Rx metFORMIN [Glucophage] 500 mg PO BID #60 11/26/21 Unknown Rx Naproxen 500 mg PO Q12H PRN #12 tab 04/19/22 Unknown Rx cephALEXin [Keflex] 500 mg PO Q6HR #28 capsule 04/19/22 Unknown Rx Allergies Allergy/AdvReac Type Severity Reaction Status Date / Time Sulfa (Sulfonamide AdvReac Vomiting Verified 04/21/22 14:20 Antibiotics) ED Review of Systems ROS: Stated complaint: WOUND RE-DRESS Other details as noted in HPI Comment: All other systems reviewed and negative ED Past Medical Hx - Past Medical History Previous Medical History?: Yes Hx Hypertension: Yes (NEW DX 01/11) Hx Diabetes: Yes - Surgical History Past Surgical History?: Yes Additional Surgical History: UTERINE FIBROID SURGERY IN 2019 - Family History Family history: no significant - Social History Smoking Status: Never Smoker Substance Use Type: None - Medications Home Medications: Home Medications Medication Instructions Recorded Confirmed Last Taken Type Aspirin [Aspirin BABY CHEW TAB] 81 mg PO QDAY 30 Days #30 tab.chew 08/23/21 Unknown Rx AtorvaSTATin [Lipitor] 20 mg PO QHS 30 Days #30 tablet 08/23/21 Unknown Rx Blood-Glucose Meter [Accu-Chek 1 each MC ONCE #1 each 08/23/21 Unknown Rx Guide Monitor System] amLODIPine 10 mg PO DAILY tablet 08/23/21 Unknown Rx glipiZIDE XL [Glucotrol Xl] 2.5 mg PO QAM 30 Days #30 tab.er.24 08/23/21 Unknown Rx Gabapentin 300 mg PO TID 30 Days #90 capsule 11/26/21 Unknown Rx Losartan [Cozaar] 100 mg PO DAILY #30 tablet 11/26/21 Unknown Rx Potassium Chloride 8 meq PO DAILY #30 11/26/21 Unknown Rx metFORMIN [Glucophage] 500 mg PO BID #60 11/26/21 Unknown Rx Naproxen 500 mg PO Q12H PRN #12 tab 04/19/22 Unknown Rx cephALEXin [Keflex] 500 mg PO Q6HR #28 capsule 04/19/22 Unknown Rx ED Physical Exam - General Limitations: No Limitations General appearance: alert, in no apparent distress - Head Head exam: Present: atraumatic, normocephalic - Eye Eye exam: Present: normal appearance - ENT ENT exam: Present: mucous membranes moist - Neck Neck exam: Present: normal inspection - Respiratory Respiratory exam: Present: normal lung sounds bilaterally. Absent: respiratory distress - Cardiovascular Cardiovascular Exam: Present: regular rate, normal rhythm. Absent: systolic murmur, diastolic murmur, rubs, gallop - GI/Abdominal GI/Abdominal exam: Present: soft, normal bowel sounds - Extremities Exam Extremities exam: Present: normal inspection - Back Exam Back exam: Present: normal inspection - Neurological Exam Neurological exam: Present: alert, oriented X3 - Psychiatric Psychiatric exam: Present: normal affect, normal mood - Skin Skin exam: Present: warm, dry, normal color, other. Absent: rash ED Course Vital Signs 04/21/22 14:16 Temperature 98 F Pulse Rate 99 H Respiratory 18 Rate Blood Pressure 158/97 [Left] O2 Sat by Pulse 99 Oximetry ED Recheck MDM - Core Measures Measure Exclusions: not indicated - Medical Decision Making Packing removed from right breast. Patient educated on wound care. She is continuing her antibiotics. Vital Signs 04/21/22 14:16 Temperature 98 F Pulse Rate 99 H Respiratory 18 Rate Blood Pressure 158/97 [Left] O2 Sat by Pulse 99 Oximetry Patient being discharged home with discharge plan of care including diet, activity, medications and follow-up. She verbalizes understanding of plan of care. Critical care attestation.: If time is entered above; I have spent that time in minutes in the direct care of this critically ill patient, excluding procedure time. ED Disposition Clinical Impression: Abscess packing removal Disposition: HOME / SELF CARE / HOMELESS Is pt being admited?: No Does the pt Need Aspirin: No Condition: Stable Instructions: Wound Care, Adult Additional Instructions: SOAK IN TUBS OF EPSOM SALTS SEVERAL TIMES PER DAY THIS WILL DRAW INFECTION OUT CHANGE DRESSING TWICE PER DAY WASH WITH SOAP AND WATER CONTINUE TO EXPECT DRAINAGE MOTRIN OR TYLENOL FOR PAIN FINISH ANTIBIOTICS FOLLOW UP WITH PCP P YOU FINISH ANTIBIOTIC TO MAKE SURE THIS HAS GONE AWAY. REFERRAL BELOW Referrals: KASSIDY NICOLAS MD [Staff Physician] - 3-5 Days Time of Disposition: 14:31
== END 2022-04-21 15:00 | disposition home or self-care (01) ==
LOC: ED 14:03
DX: Z48.01 Encounter for change or removal of surgical wound dressing (principal)